=== PATIENT | female | born 1995 | race Caucasian/White ===

== ENCOUNTER 2016-10-29 17:36 | Observation (INO) | payer OTHER, SELFPAY ==
--- NOTE | 2016-10-29 18:15 | EDM.PDOC ---
ED [facility] Behavioral Health - General Chief Complaint: Behavioral/Psych Stated Complaint: THOUGHTS OF SUICIDE Time Seen by Provider: 10/29/16 17:45 Source of Information: Reports: Patient Exam Limitations: Reports: No limitations - History of Present Illness INITIAL COMMENTS - FREE TEXT/NARRATIVE: History of present illness: [21-year-old female comes in stating that she did the lai head and she feels like doing self-harm. Patient indicates she did attempt suicide approximately 2 or 3 years ago and failed and she beginning to feel the same way she did then and is very frightening to her and she seeking help at this time] Review of systems: As per history of present illness and below otherwise all systems reviewed and negative. Past medical history: As per history of present illness and as reviewed below otherwise noncontributory. Surgical history: As per history of present illness and as reviewed below otherwise noncontributory. Social history: No reported history of drug or alcohol abuse. Family history: As per history of present illness and as reviewed below otherwise noncontributory. Physical exam: HEENT: Atraumatic, normocephalic, pupils reactive, negative for conjunctival pallor or scleral icterus, mucous membranes moist, throat clear, neck supple, nontender, trachea midline. Lungs: Clear to auscultation, breath sounds equal bilaterally, chest nontender. Heart: S1S2, regular, negative for clicks, rubs, or JVD. Abdomen: Soft, nondistended, nontender. Negative for masses or hepatosplenomegaly. Negative for costovertebral tenderness. Pelvis: Stable nontender. Genitourinary: Deferred. Rectal: Deferred. Extremities: Atraumatic, negative for cords or calf pain. Neurovascular unremarkable. Neuro: Awake, alert, oriented. Cranial nerves II through XII unremarkable. Cerebellum unremarkable. Motor and sensory unremarkable throughout. Exam nonfocal. Global assessment is benign save as indicated in the history of present illness. Patient indicates she does have suicidal thoughts and knows that if she doesn't get help she will develop the plan. Use and states that she did attempt suicide once before and felt the same way to Diagnostics: [Psych workup] Therapeutics: [] Impression: [Suicidal thoughts] Plan: [We will follow patient here for observation pending transfer to psych facility tomorrow the ground transport is available] Definitive disposition and diagnosis as appropriate pending reevaluation and review of above. - Related Data Allergies Allergy/AdvReac Type Severity Reaction Status Date / Time No Known Allergies Allergy Verified 10/29/16 17:42 Home Medications: Home Meds ClonazePAM [KlonoPIN] 0.5 mg PO TID PRN 10/29/16 [History] Depression Medication 10/29/16 [History] buPROPion [Wellbutrin XL] 150 mg PO DAILY 10/29/16 [History] Past Medical History - Past Health History Medical/Surgical History: Denies Medical/Surgical History Respiratory History: Reports: Asthma Psychiatric History: Reports: Anxiety, Depression, Suicide attempt, Suicidal ideation - Infectious Disease History Infectious Disease History: Reports: Chicken pox Social & Family History - Family History Family Medical History: Noncontributory - Tobacco Use Smoking Status *Q: Never Smoker Second Hand Smoke Exposure: No - Recreational Drug Use Recreational Drug Use: No ED ROS GENERAL - Review of Systems Review Of Systems: See Below (See history of present illness) ED EXAM, BEHAVIORAL HEALTH - Physical Exam Exam: See Below (History of present illness) COURSE, BEHAVIORAL HEALTH COMP - Course Vital Signs: Last Vital Signs Temp 36.6 C 10/29/16 17:44 Pulse 98 10/29/16 17:44 Resp 18 10/29/16 17:44 BP 130/85 10/29/16 17:44 Pulse Ox 98 10/29/16 17:44 Departure - Departure Time of Disposition: 19:41 Disposition: Admitted As Inpatient 66 Condition: good Clinical Impression: Suicidal ideation Forms: ED Department Discharge
[2016-10-29 18:38] LABS: CHLORIDE,CL 108 mmol/L (98-110); SODIUM,NA 141 mmol/L (136-146)
[2016-10-29 19:10] LABS: ACETAMINOPHEN < 3.0 ug/mL
--- NOTE | 2016-10-29 20:52 | PCM.HP ---
H&P History of Present Illness - General Date of Service: 10/29/16 Admit Problem/Dx: Admission Diagnosis/Problem Admission Diagnosis/Problem Suicide attempt Source of Information: Patient History Limitations: Reports: No limitations - History of Present Illness Initial Comments - Free Text/Narative: 21 y o patient with history prior suicide attempt or gesture comes to ER saying she feels like she did then. No transport available to psych facility, admitted here for now Onset of Symptoms: Reports: gradual - Related Data Allergies/Adverse Reactions: Allergies Allergy/AdvReac Type Severity Reaction Status Date / Time No Known Allergies Allergy Verified 10/29/16 17:42 Home Medications: Home Meds ClonazePAM [KlonoPIN] 0.5 mg PO TID PRN 10/29/16 [History] Depression Medication 10/29/16 [History] buPROPion [Wellbutrin XL] 150 mg PO DAILY 10/29/16 [History] Past Medical History - Past Health History Medical/Surgical History: Denies Medical/Surgical History Respiratory History: Reports: Asthma Psychiatric History: Reports: Anxiety, Depression, Suicide attempt, Suicidal ideation - Infectious Disease History Infectious Disease History: Reports: Chicken pox Social & Family History - Family History Family Medical History: Noncontributory - Tobacco Use Smoking Status *Q: Never Smoker Second Hand Smoke Exposure: No - Recreational Drug Use Recreational Drug Use: No - Living Situation & Occupation Living situation: Reports: single (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) H&P Review of Systems - Review of Systems: Review Of Systems: See Below General: Reports: no symptoms HEENT: Reports: no symptoms Pulmonary: Reports: No Symptoms Cardiovascular: Reports: no symptoms Gastrointestinal: Reports: No symptoms Genitourinary: Reports: no symptoms Musculoskeletal: Reports: no symptoms Skin: Reports: no symptoms Psychiatric: Reports: anxiety, suicidal ideation Neurological: Reports: No Symptoms Hematologic/Lymphatic: Reports: no symptoms Immunologic: Reports: no symptoms Exam - Exam Exam: See Below - Vital Signs Vital Signs: Last Vital Signs Temp 37.1 C 10/29/16 19:56 Pulse 95 10/29/16 19:56 Resp 16 10/29/16 19:56 BP 124/66 10/29/16 19:56 Pulse Ox 99 10/29/16 19:56 Weight: 72.575 kg - Exam General: alert, cooperative Neck: supple Lungs: Clear to auscultation Cardiovascular: regular rate Abdomen: normal bowel sounds (Female) Exam: Deferred Rectal (Female) Exam: Deferred Back Exam: normal inspection Skin: other (multiple tatoos, several superficial laceration scars both wrists) - Patient Data Result Diagrams: 10/29/16 18:10 10/29/16 18:10 *Q Meaningful Use (ADM) - VTE *Q VTE Criteria *Q: - Stroke *Q Stroke Criteria *Q: - AMI *Q AMI Criteria *Q: Problem List Initiated/Reviewed/Updated: Yes Orders Last 24hrs: Active Orders 24 hr Category Date Time Status Admission Status [Patient Status] [ADT] Stat ADT 10/29/16 19:41 Active Assessment/Plan Comment:: anxiety depression with prior history of suicide attempt or at least gesture Plan admit here in monitored room until transport available to psych facility
[2016-10-29] MEDS ORDERED: Acetaminophen 325 MG Tab PO PRN (20:53)
[2016-10-29] MEDS ORDERED: Ondansetron 4 MG Tab.DIS PO PRN (20:53)
[2016-10-29] MEDS ORDERED: ClonazePAM 0.5 MG Tab PO PRN (20:55)
[2016-10-30 08:52] VITALS: BP 91/51
[2016-10-30] MEDS ORDERED: buPROPion 150 MG Tab.ER PO SCH (09:00)
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
--- NOTE | 2016-11-01 16:04 | PCM.DCSUM1 ---
Discharge Summary - Hospital Course Free Text/Narrative:: Admission diagnoses: #1. suicidal ideations #2. Anxiety #3. Depression #4. Marijuana use Discharge diagnoses: #1. Suicidal ideations, resolved #2. Anxiety #3. Depression #4. Marijuana use 21-year-old female that was admitted secondary to suicidal ideations. Patient presented to the emergency room feeling as though she could potentially harm herself. She was admitted to the ICU and had a one-on-one sitter during admission. Patient denied any suicidal/homicidal ideations after admission. CBC , CMP, urinalysis, ethanol levels and urine drug screen were all unremarkable. TSH was mildly low at 0.4 with T3 being within normal limits. Patient did visit with psychiatrist, Dr. Sebastian, via the computer. He spoke with me following his conversation with the patient and suggested that she is safe for discharge and that she needs to be set up with mental health provider here in [place], [place]. He did make some adjustments to her medications. At the time of discharge, the patient denied any suicidal/homicidal ideations and felt that she was safe to go home. - Discharge Data Discharge Date: 10/30/16 Discharge Disposition: Home, Self-Care 01 Condition: Fair - Discharge Diagnosis/Problem(s) (1) Suicidal ideation SNOMED Code(s): 2419447, [id number] ICD Code: R45.851 - SUICIDAL IDEATIONS Status: Acute - Patient Instructions Diet: Usual Diet as Tolerated, No Alcoholic Beverages Activity: As Tolerated Driving: May Drive Today Showering/Bathing: May Shower Notify Provider of: Fever, Increased Pain, Nausea and/or Vomiting - Discharge Plan Prescriptions/Med Rec: ClonazePAM [KlonoPIN] 0.5 mg PO BID #60 tablet Topiramate [Topamax] 25 mg PO BID #14 tab Topiramate [Topamax] 50 mg PO BID #60 tab Home Medications: Home Meds buPROPion [Wellbutrin XL] 150 mg PO DAILY 10/29/16 [History] Acyclovir [Zovirax] 800 mg PO BID 10/30/16 [History] ClonazePAM [KlonoPIN] 0.5 mg PO BID #60 tablet 10/30/16 [Rx] Topiramate [Topamax] 25 mg PO BID #14 tab 10/30/16 [Rx] Topiramate [Topamax] 50 mg PO BID #60 tab 10/30/16 [Rx] Patient Handouts: Suicidal Feelings: How to Help Yourself Forms: ED Department Discharge Referrals: Sintia Escobedo NP [Nurse Practitioner] - 12/07/16 10:00 am (Will call if an appointment opens up sooner. ) Lala Boyce NP [Ordering Only Provider] - PCP,None [Primary Care Provider] - - Discharge Summary/Plan Comment DC Time >30 min.: No Discharge Summary/Plan Comment: Admission diagnoses: #1. suicidal ideations #2. Anxiety #3. Depression #4. Marijuana use Discharge diagnoses: #1. Suicidal ideations, resolved #2. Anxiety #3. Depression #4. Marijuana use 21-year-old female that was admitted secondary to suicidal ideations. Patient presented to the emergency room feeling as though she could potentially harm herself. She was admitted to the ICU and had a one-on-one sitter during admission. Patient denied any suicidal/homicidal ideations after admission. CBC , CMP, urinalysis, ethanol levels and urine drug screen were all unremarkable. TSH was mildly low at 0.4 with T3 being within normal limits. Patient did visit with psychiatrist, Dr. Sebastian, via the computer. He spoke with me following his conversation with the patient and suggested that she is safe for discharge and that she needs to be set up with mental health provider here in [place], [place]. He did make some adjustments to her medications. At the time of discharge, the patient denied any suicidal/homicidal ideations and felt that she was safe to go home. Discharge plan: #1. Patient has an appointment set with Tracy Escobedo, nurse practitioner in mental health on December 07, 2016. #2. Patient encouraged to follow up with her primary care provider, Lala Boyce as soon as possible following discharge. #3. Patient prescribed Topamax 25 mg twice a day for one week with the dose being increased to 50 mg twice a day thereafter. This was recommended by Dr. Sebastian. #4. Patient prescribed Klonopin 0.5 mg twice a day scheduled with an additional 0.5 mg being taken daily if needed. This was recommended by Dr. Sebastian. #5. Patient will continue with Wellbutrin 150 mg daily. #6. Encouraged the patient to stop using marijuana. Patient voiced understanding. - Patient Data Vitals - Most Recent: Last Vital Signs Temp 98.5 F 10/30/16 08:30 Pulse 77 10/30/16 08:30 Resp 14 10/30/16 08:30 BP 91/51 L 10/30/16 08:30 Pulse Ox 99 10/30/16 08:30 Weight - Most Recent: 160 lb Med Orders - Current: Current Medications Discontinued Medications Acetaminophen (Tylenol) 650 mg PO Q4H PRN PRN Reason: Pain (Mild 1-3)/fever Bupropion HCl (Wellbutrin Xl) 150 mg PO DAILY KELSI Last Admin: 10/30/16 08:59 Dose: 150 mg Clonazepam (Klonopin) 0.5 mg PO TID PRN PRN Reason: Anxiety Ondansetron HCl (Zofran Odt) 4 mg PO Q4H PRN PRN Reason: nausea, able to take PO *Q Meaningful Use (DIS) - VTE *Q VTE Criteria *Q: - Stroke *Q Stroke Criteria *Q: - AMI *Q AMI Criteria *Q:
== END 2016-10-30 12:39 | disposition home or self-care (01) ==
LOC: MW.ED 17:36 → MW.ICU 19:41
PROVIDERS: ADMIT Internal Medicine; ATTEND Internal Medicine
DX: R45.851 Suicidal ideations (principal); Z79.899 Other long term (current) drug therapy; F41.9 Anxiety disorder, unspecified; F32.9 Major depressive disorder, single episode, unspecified; F12.90 Cannabis use, unspecified, uncomplicated
CPT/HCPCS: 36415; 80053; 80305; 81001; 81025; 83735; 84443; 84481; 85025; 93005; 99285; A9270; G0378; G0480

== ENCOUNTER 2017-04-22 11:04 | Emergency (ER) | payer OTHER, SELFPAY ==
[2017-04-22] MEDS ORDERED: Sodium Chloride 0.9% 1,000 ML IV ONE (11:23)
[2017-04-22] MEDS ORDERED: Ondansetron 4 MG/2 ML SDV IVPUSH ONE (11:23)
[2017-04-22] MEDS ORDERED: Ketorolac 30 MG/ML SDV IVPUSH ONE (11:23)
--- NOTE | 2017-04-22 11:29 | EDM.PDOC ---
ED HPI GENERAL MEDICAL PROBLEM - General Chief Complaint: Headache Stated Complaint: MIGRAINE Time Seen by Provider: 04/22/17 11:08 Source of Information: Reports: Patient History Limitations: Reports: No Limitations - History of Present Illness INITIAL COMMENTS - FREE TEXT/NARRATIVE: HISTORY AND PHYSICAL: History of present illness: is a 22-year-old female who presents to the emergency room today with complaints of "migraine headache". States she has a long-standing history of headaches which she normally treats with rest in a dark room. Last headache was approximately 3 weeks ago. Today she states this headache started Saturday evening and is ongoing. She has not tried any [id number] products. Saturday night patient reports that she felt "out of it". Reports that her boyfriend had to drive her home which seem to be alleviated by sleeping and improved Saturday but still had her migraine headache. Does have some light and noise sensitivity. Has been seeing her primary caregiver Anamaria Saenz for her headaches. Currently takes Topamax and Klonopin which is prescribed by Marissa Escobedo psychiatrist. Denies any recent head injury or trauma. Denies syncope. Denies any blurred vision, nausea, vomiting. Review of systems: As per history of present illness and below otherwise all systems reviewed and negative. Past medical history: As per history of present illness and as reviewed below otherwise noncontributory. Surgical history: As per history of present illness and as reviewed below otherwise noncontributory. Social history: No reported history of drug or alcohol abuse. Family history: As per history of present illness and as reviewed below otherwise noncontributory. Physical exam: Gen.: Nontoxic appearing 22-year-old female. Able to speak in full sentences without shortness of breath. Alert and oriented. HEENT: Atraumatic, normocephalic, pupils reactive, negative for conjunctival pallor or scleral icterus, mucous membranes moist, throat clear, neck supple, nontender, trachea midline. Tympanic membrane normal bilaterally. Lungs: Clear to auscultation, breath sounds equal bilaterally, chest nontender. Heart: S1S2, regular, negative for clicks, rubs, or JVD. Abdomen: Soft, nondistended, nontender. Negative for masses or hepatosplenomegaly. Negative for costovertebral tenderness. Pelvis: Stable nontender. Genitourinary: Deferred. Rectal: Deferred. Extremities: Atraumatic, moves all extremities per self, negative for cords or calf pain. Neurovascular unremarkable. Neuro: Awake, alert, oriented. Cranial nerves II through XII unremarkable. Cerebellum unremarkable. Motor and sensory unremarkable throughout. Exam nonfocal. Neurological assessment is within normal limits. Patient states she has not had any recent head injury or trauma and declines a head CT at this time. Patient states that she did not get any relief with the IV fluids, Toradol and Zofran. Patient reports she does have a ride therefore I will give some Ativan and Benadryl with a second liter of fluids. After receiving her second bag of fluids and medications she does rate her pain at a 3 out of 10, which she is satisfied with. We did discuss further follow-up with her primary caregiver as she may need a migraine medication if these continue to be monthly. Patient is agreeable to plan of care and denies any further questions at this time. Will follow up with her primary care provider over the next 1-2 days. Diagnostics: None Therapeutics: Initial: IV fluid, Toradol, Zofran Additional Therapy: Ativan, Benadryl, IV fluids Impression: Migraine Headache Plan: 1. Please take the rest of the day to rest in a dark room, no driving after the medications you received. Encourage oral fluids and good nutrition. 2. Follow-up with your primary care provider in the next 1-2 days. Return to the ED as needed and as discussed Definitive disposition and diagnosis as appropriate pending reevaluation and review of above. Onset Date: 04/19/17 Duration: Day(s): Location: Reports: Head Temporal Headache Pain Score (Numeric/FACES): 5 - Related Data Allergies Allergy/AdvReac Type Severity Reaction Status Date / Time No Known Allergies Allergy Verified 04/22/17 11:19 Home Meds: Home Meds buPROPion [Wellbutrin XL] 150 mg PO DAILY 10/29/16 [History] ClonazePAM [KlonoPIN] 0.5 mg PO BID #60 tablet 10/30/16 [Rx] Topiramate [Topamax] 50 mg PO BID #60 tab 10/30/16 [Rx] Albuterol Sulfate [Ventolin Hfa] 8 gm IH ASDIRECTED PRN 04/22/17 [History] Montelukast Sodium [Singulair] 10 mg PO DAILY 04/22/17 [History] valACYclovir HCl [valACYclovir] 1,000 mg PO DAILY 04/22/17 [History] Past Medical History - Past Health History Medical/Surgical History: Denies Medical/Surgical History Respiratory History: Reports: Asthma Neurological History: Reports: Migraines Psychiatric History: Reports: Anxiety, Depression, Suicide Attempt, Suicidal Ideation - Infectious Disease History Infectious Disease History: Reports: Chicken Pox Social & Family History - Family History Family Medical History: Noncontributory - Tobacco Use Smoking Status *Q: Never Smoker Second Hand Smoke Exposure: No - Caffeine Use Caffeine Use: Reports: Coffee, Energy Drinks, Soda, Tea - Recreational Drug Use Recreational Drug Use: Yes Drug Use in Last 12 Months: Yes Recreational Drug Type: Reports: Marijuana/Hashish Recreational Drug Use Frequency: Rarely - Living Situation & Occupation Living situation: Reports: Single ED ROS GENERAL - Review of Systems Review Of Systems: ROS reveals no pertinent complaints other than HPI. Constitutional: Denies: Fever, Chills Respiratory: Denies: Shortness of Breath Cardiovascular: Denies: Chest Pain GI/Abdominal: Denies: Abdominal Pain, Diarrhea, Vomiting : Denies: Dysuria Skin: Denies: Jaundice Neurological: Reports: Headache. Denies: Confusion, Dizziness, Numbness, Paresthesia, Syncope, Tingling, Trouble Speaking, Difficulty Walking, Change in Speech, Gait Disturbance Psychiatric: Denies: Agitation, Confusion - Physical Exam Exam: See Below (See dictation) Course - Vital Signs Last Recorded V/S: Last Vital Signs Temp 36.6 C 04/22/17 11:17 Pulse 83 04/22/17 13:02 Resp 16 04/22/17 13:02 BP 105/59 L 04/22/17 13:02 Pulse Ox 100 04/22/17 13:02 - Orders/Labs/Meds Orders: Active Orders 24 hr Category Date Time Status Sodium Chloride 0.9% [Normal Saline] 1,000 ml Med 04/22/17 12:30 Active IV ASDIRECTED Medication Orders Sodium Chloride (Normal Saline) 1,000 mls @ 999 mls/hr IV ASDIRECTED KELSI Last Admin: 04/22/17 13:02 Dose: 999 mls/hr Meds: Medications Generic Name Dose Route Start Last Admin Trade Name Freq PRN Reason Stop Dose Admin Sodium Chloride 1,000 mls @ 999 mls/hr 04/22/17 12:30 04/22/17 13:02 Normal Saline IV 999 mls/hr ASDIRECTED KELSI Administration Discontinued Medications Generic Name Dose Route Start Last Admin Trade Name Maria Esther PRN Reason Stop Dose Admin Diphenhydramine HCl 25 mg 04/22/17 12:21 04/22/17 12:45 Benadryl IVPUSH 04/22/17 12:22 25 mg ONETIME ONE Administration Sodium Chloride 1,000 mls @ 999 mls/hr 04/22/17 11:23 04/22/17 11:37 Normal Saline IV 04/22/17 12:23 999 mls/hr STAT ONE Administration Ketorolac Tromethamine 30 mg 04/22/17 11:23 04/22/17 11:40 Toradol IVPUSH 04/22/17 11:24 30 mg ONETIME ONE Administration Lorazepam 1 mg 04/22/17 12:21 04/22/17 12:43 Ativan IVPUSH 04/22/17 12:22 1 mg ONETIME ONE Administration Ondansetron HCl 4 mg 04/22/17 11:23 04/22/17 11:41 Zofran IVPUSH 04/22/17 11:24 4 mg ONETIME ONE Administration Departure - Departure Time of Disposition: 13:14 Disposition: Home, Self-Care 01 Clinical Impression: Migraine - Discharge Information Referrals: PCP,None [Primary Care Provider] - Forms: ED Department Discharge Additional Instructions: My general discharge The following information is given to patients seen in the emergency department who are being discharged to home. This information is to outline your options for follow-up care. We provide all patients seen in our emergency department with a follow-up referral. The need for follow-up, as well as the timing and circumstances, are variable depending upon the specifics of your emergency department visit. If you don't have a primary care physician on staff, we will provide you with a referral. We always advise you to contact your personal physician following an emergency department visit to inform them of the circumstance of the visit and for follow-up with them and/or the need for any referrals to a consulting specialist. The emergency department will also refer you to a specialist when appropriate. This referral assures that you have the opportunity for follow-up care with a specialist. All of these measure are taken in an effort to provide you with optimal care, which includes your follow-up. Under all circumstances we always encourage you to contact your private physician who remains a resource for coordinating your care. When calling for follow-up care, please make the office aware that this follow-up is from your recent emergency room visit. If for any reason you are refused follow-up, please contact the [facility] Emergency Department at and asked to speak to the emergency department charge nurse. [facility] Primary Care - Women's Health [address] [place] [id number] 1. Please take the rest of the day to rest in a dark room, no driving after the medications you received. Encourage oral fluids and good nutrition. 2. Follow-up with your primary care provider in the next 1-2 days. Return to the ED as needed and as discussed - My Orders Last 24 Hours: My Active Orders 04/22/17 12:30 Sodium Chloride 0.9% [Normal Saline] 1,000 ml IV ASDIRECTED - Assessment/Plan Last 24 Hours: My Active Orders 04/22/17 12:30 Sodium Chloride 0.9% [Normal Saline] 1,000 ml IV ASDIRECTED
[2017-04-22] MEDS ORDERED: LORazepam 2 MG/ML MDV IVPUSH ONE (12:21)
[2017-04-22] MEDS ORDERED: diphenhydrAMINE 50 MG/ML SDV IVPUSH ONE (12:21)
[2017-04-22] MEDS ORDERED: Sodium Chloride 0.9% 1,000 ML IV SCH (12:30)
[2017-04-22 13:03] VITALS: BP 105/59
== END 2017-04-22 14:01 | disposition home or self-care (01) ==
LOC: MW.ED 11:04
DX: G43.909 Migraine, unspecified, not intractable, without status migrainosus (principal); Z79.899 Other long term (current) drug therapy
CPT/HCPCS: 96361; 96374; 96375; 99283; J1200; J1885; J2060; J2405; J7040

== ENCOUNTER 2017-05-01 14:34 | Emergency (ER) | payer OTHER, SELFPAY ==
--- NOTE | 2017-05-01 14:47 | EDM.PDOC ---
ED HPI GENERAL MEDICAL PROBLEM - General Stated Complaint: MIGRAINE Time Seen by Provider: 05/01/17 14:44 - History of Present Illness INITIAL COMMENTS - FREE TEXT/NARRATIVE: HISTORY AND PHYSICAL: History of present illness: Patient is 22-year-old female with history migraine headaches was seen 1 week prior with migraine he returns now for reevaluation and referral she is on multiple medications please see nursing notes for complete record she denies nausea vomiting fever chills neck pain or stiffness or other complaints she denies trauma Review of systems: As per history of present illness and below otherwise all systems reviewed and negative. Past medical history: As per history of present illness and as reviewed below otherwise noncontributory. Surgical history: As per history of present illness and as reviewed below otherwise noncontributory. Social history: No reported history of drug or alcohol abuse. Family history: As per history of present illness and as reviewed below otherwise noncontributory. Physical exam: HEENT: Atraumatic, normocephalic, pupils reactive, negative for conjunctival pallor or scleral icterus, mucous membranes moist, throat clear, neck supple, nontender, trachea midline. Lungs: Clear to auscultation, breath sounds equal bilaterally, chest nontender. Heart: S1S2, regular, negative for clicks, rubs, or JVD. Abdomen: Soft, nondistended, nontender. Negative for masses or hepatosplenomegaly. Negative for costovertebral tenderness. Pelvis: Stable nontender. Genitourinary: Deferred. Rectal: Deferred. Extremities: Atraumatic, negative for cords or calf pain. Neurovascular unremarkable. Neuro: Awake, alert, oriented. Cranial nerves II through XII unremarkable. Cerebellum unremarkable. Motor and sensory unremarkable throughout. Exam nonfocal. Diagnostics: Deferred Therapeutics: Deferred Impression: #1 migraine headache Definitive disposition and diagnosis as appropriate pending reevaluation and review of above. - Related Data Allergies Allergy/AdvReac Type Severity Reaction Status Date / Time No Known Allergies Allergy Verified 04/22/17 11:19 Home Meds: Home Meds buPROPion [Wellbutrin XL] 150 mg PO DAILY 10/29/16 [History] ClonazePAM [KlonoPIN] 0.5 mg PO BID #60 tablet 10/30/16 [Rx] Topiramate [Topamax] 50 mg PO BID #60 tab 10/30/16 [Rx] Albuterol Sulfate [Ventolin Hfa] 8 gm IH ASDIRECTED PRN 04/22/17 [History] Montelukast Sodium [Singulair] 10 mg PO DAILY 04/22/17 [History] valACYclovir HCl [valACYclovir] 1,000 mg PO DAILY 04/22/17 [History] Past Medical History - Past Health History Medical/Surgical History: Denies Medical/Surgical History Respiratory History: Reports: Asthma Neurological History: Reports: Migraines Psychiatric History: Reports: Anxiety, Depression, Suicide Attempt, Suicidal Ideation - Infectious Disease History Infectious Disease History: Reports: Chicken Pox Social & Family History - Family History Family Medical History: Noncontributory - Tobacco Use Smoking Status *Q: Never Smoker Second Hand Smoke Exposure: No - Caffeine Use Caffeine Use: Reports: Coffee, Energy Drinks, Soda, Tea - Recreational Drug Use Recreational Drug Use: Yes Drug Use in Last 12 Months: Yes Recreational Drug Type: Reports: Marijuana/Hashish Recreational Drug Use Frequency: Rarely - Living Situation & Occupation Living situation: Reports: Single ED ROS GENERAL - Review of Systems Review Of Systems: ROS reveals no pertinent complaints other than HPI. ED EXAM, GENERAL - Physical Exam Exam: See Below (The dictation) Departure - Departure Time of Disposition: 14:47 Disposition: Home, Self-Care 01 Condition: Good Clinical Impression: Migraine - Discharge Information Referrals: PCP,None [Primary Care Provider] - Additional Instructions: The following information is given to patients seen in the emergency department who are being discharged to home. This information is to outline your options for follow-up care. We provide all patients seen in our emergency department with a follow-up referral. The need for follow-up, as well as the timing and circumstances, are variable depending upon the specifics of your emergency department visit. If you don't have a primary care physician on staff, we will provide you with a referral. We always advise you to contact your personal physician following an emergency department visit to inform them of the circumstance of the visit and for follow-up with them and/or the need for any referrals to a consulting specialist. The emergency department will also refer you to a specialist when appropriate. This referral assures that you have the opportunity for followup care with a specialist. All of these measure are taken in an effort to provide you with optimal care, which includes your followup. Under all circumstances we always encourage you to contact your private physician who remains a resource for coordinating your care. When calling for followup care, please make the office aware that this follow-up is from your recent emergency room visit. If for any reason you are refused follow-up, please contact the [facility] emergency department at and asked to speak to the emergency department charge nurse. [facility] Specialty Care - Neurology Professional [address], [address] [place] [address] Continue current medications as prescribed follow-up neurology call to schedule appointment return as needed as discussed
[2017-05-01 15:49] VITALS: BP 132/70
== END 2017-05-01 14:53 | disposition home or self-care (01) ==
LOC: MW.ED 14:34
DX: G43.909 Migraine, unspecified, not intractable, without status migrainosus (principal); F32.9 Major depressive disorder, single episode, unspecified; Z79.899 Other long term (current) drug therapy
CPT/HCPCS: 99282

== ENCOUNTER 2017-05-06 17:49 | Emergency (ER) | payer OTHER, SELFPAY ==
--- NOTE | 2017-05-06 19:00 | EDM.PDOC ---
ED HPI GENERAL MEDICAL PROBLEM - General Chief Complaint: Headache Stated Complaint: MIGRAINE Time Seen by Provider: 05/06/17 18:54 Source of Information: Reports: Patient History Limitations: Reports: No Limitations - History of Present Illness INITIAL COMMENTS - FREE TEXT/NARRATIVE: HISTORY AND PHYSICAL: History of present illness: Patient is a 22-year-old female who presents to the emergency room today with complaints of a migraine headache which she has had for approximately 5 days. She states this is accompanied by nausea, vomiting, light and noise sensitivity. She was diagnosed with migraines at the age of 15 and states she does take a daily maintenance medication, but is unsure of the name or dose of what she takes. Had a head CT by her primary care provider last week , she has not received those results. This was ordered due to her frequency of migraines. Was seen in the emergency room on 05/01/17 for this headache and states she did not receive any medications and her headache has not improved. Denies any recent head injury or trauma to the scalp. Denies any blurred vision. Currently on menses. Denies any chance of . Review of systems: As per history of present illness and below otherwise all systems reviewed and negative. Past medical history: As per history of present illness and as reviewed below otherwise noncontributory. Surgical history: As per history of present illness and as reviewed below otherwise noncontributory. Social history: No reported history of drug or alcohol abuse. Family history: As per history of present illness and as reviewed below otherwise noncontributory. Physical exam: Gen.: Nontoxic appearing 22-year-old female. Well-developed and well-nourished. Alert and oriented. HEENT: Atraumatic, normocephalic, pupils reactive, negative for conjunctival pallor or scleral icterus, mucous membranes moist, throat clear, neck supple, nontender, trachea midline. Lungs: Clear to auscultation, breath sounds equal bilaterally, chest nontender. Heart: S1S2, regular, negative for clicks, rubs, or JVD. Abdomen: Soft, nondistended, nontender. Negative for masses or hepatosplenomegaly. Negative for costovertebral tenderness. Pelvis: Stable nontender. Genitourinary: Deferred. Rectal: Deferred. Extremities: Atraumatic, negative for cords or calf pain. Neurovascular unremarkable. Neuro: Awake, alert, oriented. Cranial nerves II through XII unremarkable. Cerebellum unremarkable. Motor and sensory unremarkable throughout. Exam nonfocal. Patient had a MRI brain 05/02/17. A mild sinusitis. I did share this with patient. She states that she still has migraine headache pain even after receiving the IV medications. I did suggest that she go home and rest rest the evening. Will treat the sinusitis with Augmentin encouraged her to follow-up with her primary care provider. Patient denies any further questions, is agreeable to plan of care and denies any further questions. Diagnostics: [] Therapeutics: IV fluid, Toradol, Zofran, Benadryl Impression: Migraines Sinusitis Plan: 1. Rest the remainder of the evening in a quiet dark room. He may use over-the- counter Excedrin Migraine or ibuprofen as needed. 2. Will treat the sinusitis with an antibiotic. Please take as directed. 3. Follow-up with your primary care provider in the next 1-2 days. Return to the ED as needed as discussed. Definitive disposition and diagnosis as appropriate pending reevaluation and review of above. Duration: Day(s): Location: Reports: Head Headache Pain Score (Numeric/FACES): 9 - Related Data Allergies Allergy/AdvReac Type Severity Reaction Status Date / Time No Known Allergies Allergy Verified 05/06/17 18:11 Home Meds: Home Meds buPROPion [Wellbutrin XL] 150 mg PO DAILY 10/29/16 [History] ClonazePAM [KlonoPIN] 0.5 mg PO BID #60 tablet 10/30/16 [Rx] Montelukast Sodium [Singulair] 10 mg PO DAILY 04/22/17 [History] valACYclovir HCl [valACYclovir] 1,000 mg PO DAILY 04/22/17 [History] Citalopram [Celexa] 40 mg PO DAILY 05/01/17 [History] Omalizumab [Xolair] 05/01/17 [History] Zolpidem [Ambien] 10 mg PO DAILY 05/01/17 [History] Past Medical History - Past Health History Medical/Surgical History: Denies Medical/Surgical History Respiratory History: Reports: Asthma Neurological History: Reports: Migraines Psychiatric History: Reports: Anxiety, Depression, Suicide Attempt, Suicidal Ideation - Infectious Disease History Infectious Disease History: Reports: Chicken Pox Social & Family History - Family History Family Medical History: Noncontributory - Tobacco Use Smoking Status *Q: Never Smoker Second Hand Smoke Exposure: No - Caffeine Use Caffeine Use: Reports: Tea - Recreational Drug Use Recreational Drug Use: No Drug Use in Last 12 Months: Yes Recreational Drug Type: Reports: Marijuana/Hashish Recreational Drug Use Frequency: Rarely - Living Situation & Occupation Living situation: Reports: Single ED ROS GENERAL - Review of Systems Review Of Systems: ROS reveals no pertinent complaints other than HPI. - Physical Exam Exam: See Below (See dictation) Course - Vital Signs Last Recorded V/S: Last Vital Signs Temp 36.7 C 05/06/17 18:21 Pulse 79 05/06/17 18:21 Resp 18 05/06/17 18:21 BP 121/71 05/06/17 18:21 Pulse Ox 97 05/06/17 18:21 - Orders/Labs/Meds Meds: Medications Discontinued Medications Generic Name Dose Route Start Last Admin Trade Name Maria Esther PRN Reason Stop Dose Admin Diphenhydramine HCl 50 mg 05/06/17 19:01 05/06/17 19:15 Benadryl IVPUSH 05/06/17 19:02 50 mg ONETIME ONE Administration Sodium Chloride 1,000 mls @ 999 mls/hr 05/06/17 19:01 05/06/17 19:13 Normal Saline IV 05/06/17 20:01 999 mls/hr STAT ONE Administration Ketorolac Tromethamine 30 mg 05/06/17 19:01 05/06/17 19:15 Toradol IVPUSH 05/06/17 19:02 30 mg ONETIME ONE Administration Lorazepam 1 mg 05/06/17 20:03 05/06/17 20:22 Ativan IVPUSH 05/06/17 20:04 1 mg ONETIME ONE Administration Ondansetron HCl 4 mg 05/06/17 19:01 05/06/17 19:15 Zofran IVPUSH 05/06/17 19:02 4 mg ONETIME ONE Administration Departure - Departure Time of Disposition: 20:58 Disposition: Home, Self-Care 01 Clinical Impression: Migraine Qualifiers: Migraine type: unspecified Status migrainosus presence: without status migrainosus Intractability: not intractable Qualified Code(s): G43.909 - Migraine, unspecified, not intractable, without status migrainosus Sinusitis Qualifiers: Sinusitis location: sphenoidal Chronicity: subacute Qualified Code(s): J01.30 - Acute sphenoidal sinusitis, unspecified - Discharge Information Referrals: PCP,None [Primary Care Provider] - Forms: ED Department Discharge Additional Instructions: My general discharge The following information is given to patients seen in the emergency department who are being discharged to home. This information is to outline your options for follow-up care. We provide all patients seen in our emergency department with a follow-up referral. The need for follow-up, as well as the timing and circumstances, are variable depending upon the specifics of your emergency department visit. If you don't have a primary care physician on staff, we will provide you with a referral. We always advise you to contact your personal physician following an emergency department visit to inform them of the circumstance of the visit and for follow-up with them and/or the need for any referrals to a consulting specialist. The emergency department will also refer you to a specialist when appropriate. This referral assures that you have the opportunity for follow-up care with a specialist. All of these measure are taken in an effort to provide you with optimal care, which includes your follow-up. Under all circumstances we always encourage you to contact your private physician who remains a resource for coordinating your care. When calling for follow-up care, please make the office aware that this follow-up is from your recent emergency room visit. If for any reason you are refused follow-up, please contact the [facility] Emergency Department at and asked to speak to the emergency department charge nurse. [facility] Primary [facility] [address] [place] [id number] 1. Rest the remainder of the evening in a quiet dark room. You may use over-the- counter Excedrin Migraine or ibuprofen as needed. 2. Will treat the sinusitis with an antibiotic. Please take as directed. 3. Follow-up with your primary care provider in the next 1-2 days. Return to the ED as needed as discussed.
[2017-05-06] MEDS ORDERED: Ketorolac 30 MG/ML SDV IVPUSH ONE (19:01)
[2017-05-06] MEDS ORDERED: Ondansetron 4 MG/2 ML SDV IVPUSH ONE (19:01)
[2017-05-06] MEDS ORDERED: diphenhydrAMINE 50 MG/ML SDV IVPUSH ONE (19:01)
[2017-05-06] MEDS ORDERED: Sodium Chloride 0.9% 1,000 ML IV ONE (19:01)
[2017-05-06] MEDS ORDERED: LORazepam 2 MG/ML SDV IVPUSH ONE (20:03)
[2017-05-07 01:00] VITALS: BP 112/65
== END 2017-05-06 21:19 | disposition home or self-care (01) ==
LOC: MW.ED 17:49
DX: G43.909 Migraine, unspecified, not intractable, without status migrainosus (principal); J01.30 Acute sphenoidal sinusitis, unspecified
CPT/HCPCS: 96361; 96374; 96375; 99283; J1200; J1885; J2060; J2405; J7040

== ENCOUNTER 2017-05-08 14:23 | Emergency (ER) | payer OTHER, SELFPAY ==
--- NOTE | 2017-05-08 15:03 | EDM.PDOC ---
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 Last menstrual period was April 16, 2017 and believed she was currently on her period today. She went to the bathroom and noticed some tissue as she wiped with toilet paper. She brought the toilet paper with the believed tissue to the emergency room for viewing. She denies any abdominal pain, cramping, nausea, vomiting or diarrhea. Patient is tearful while sitting on the cot, although has no current complaints. She states that she is "just sad if I did miscarry ". She has had no recent sexual activity. Review of systems: As per history of present illness and below otherwise all systems reviewed and negative. Past medical history: As per history of present illness and as reviewed below otherwise noncontributory. Surgical history: As per history of present illness and as reviewed below otherwise noncontributory. Social history: No reported history of drug or alcohol abuse. Family history: As per history of present illness and as reviewed below otherwise noncontributory. Physical exam: HEENT: Atraumatic, normocephalic, pupils reactive, negative for conjunctival pallor or scleral icterus, mucous membranes moist, throat clear, neck supple, nontender, trachea midline. Lungs: Clear to auscultation, breath sounds equal bilaterally, chest nontender. Heart: S1S2, regular, negative for clicks, rubs, or JVD. Abdomen: Soft, nondistended, nontender. Negative for masses or hepatosplenomegaly. Negative for costovertebral tenderness. Pelvis: Stable nontender. Genitourinary: Deferred. Rectal: Deferred. Extremities: Atraumatic, negative for cords or calf pain. Neurovascular unremarkable. Neuro: Awake, alert, oriented. Cranial nerves II through XII unremarkable. Cerebellum unremarkable. Motor and sensory unremarkable throughout. Exam nonfocal. Diagnostics: CBC, UA, serum hCG Therapeutics: [] Impression: Vaginal bleeding Plan: 1. Please follow-up with your FINANCIAL REPORTING ACCOUNTANT for routine well woman exam. He may take Tylenol and/or ibuprofen as needed for pain management. 2. Return to the ED as needed and as discussed. Definitive disposition and diagnosis as appropriate pending reevaluation and review of above. Onset: Today Duration: Hour(s): - Related Data Allergies Allergy/AdvReac Type Severity Reaction Status Date / Time No Known Allergies Allergy Verified 05/08/17 14:32 Home Meds: Home Meds buPROPion [Wellbutrin XL] 150 mg PO DAILY 10/29/16 [History] ClonazePAM [KlonoPIN] 0.5 mg PO BID #60 tablet 10/30/16 [Rx] Montelukast Sodium [Singulair] 10 mg PO DAILY 04/22/17 [History] valACYclovir HCl [valACYclovir] 1,000 mg PO DAILY 04/22/17 [History] Citalopram [Celexa] 40 mg PO DAILY 05/01/17 [History] Omalizumab [Xolair] 05/01/17 [History] Zolpidem [Ambien] 10 mg PO DAILY 05/01/17 [History] Past Medical History - Past Health History Medical/Surgical History: Denies Medical/Surgical History Respiratory History: Reports: Asthma Neurological History: Reports: Migraines Psychiatric History: Reports: Anxiety, Depression, Suicide Attempt, Suicidal Ideation - Infectious Disease History Infectious Disease History: Reports: Chicken Pox Social & Family History - Family History Family Medical History: Noncontributory - Tobacco Use Smoking Status *Q: Never Smoker Second Hand Smoke Exposure: No - Caffeine Use Caffeine Use: Reports: Tea - Recreational Drug Use Recreational Drug Use: No Drug Use in Last 12 Months: Yes Recreational Drug Type: Reports: Marijuana/Hashish Recreational Drug Use Frequency: Rarely - Living Situation & Occupation Living situation: Reports: Single ED ROS GENERAL - Review of Systems Review Of Systems: ROS reveals no pertinent complaints other than HPI. Constitutional: Denies: Fever, Chills, Weakness, Fatigue Respiratory: Denies: Shortness of Breath Cardiovascular: Denies: Chest Pain Endocrine: Denies: Fatigue GI/Abdominal: Denies: Abdominal Pain, Constipation, Diarrhea, Nausea, Vomiting : Reports: Other (Vaginal bleeding which was thought to be menses). Denies: Discharge, Dysuria, Frequency, Hematuria Musculoskeletal: Denies: Muscle Pain Skin: Denies: Rash Neurological: Reports: Headache (Chronic migraines -currently headache free). Denies: Dizziness ED EXAM, GI/ABD - Physical Exam Exam: See Below (See dictation) Course - Vital Signs Last Recorded V/S: Last Vital Signs Temp 36.3 C 05/08/17 14:23 Pulse 86 05/08/17 14:23 Resp 18 05/08/17 14:23 BP 161/98 H 05/08/17 14:23 Pulse Ox 100 05/08/17 14:23 - Orders/Labs/Meds Labs: Laboratory Tests 05/08/17 05/08/17 05/08/17 Range/Units 15:00 15:00 15:40 WBC 8.56 (4.0-11.0) K/uL RBC 4.16 L (4.30-5.90) M/uL Hgb 13.7 (12.0-16.0) g/dL Hct 40.6 (36.0-46.0) % MCV 97.6 (80.0-98.0) fL MCH 32.9 H (27.0-32.0) pg MCHC 33.7 (31.0-37.0) g/dL RDW Std Deviation 43.5 (28.0-62.0) fl RDW Coeff of Josh 12 (11.0-15.0) % Plt Count 329 (150-400) K/uL MPV 9.30 (7.40-12.00) fL Neut % (Auto) 70.5 (48.0-80.0) % Lymph % (Auto) 23.4 (16.0-40.0) % [place] % (Auto) 5.4 (0.0-15.0) % Eos % (Auto) 0.6 (0.0-7.0) % Baso % (Auto) 0.1 (0.0-1.5) % Neut # (Auto) 6.0 H (1.4-5.7) K/uL Lymph # (Auto) 2.0 (0.6-2.4) K/uL [place] # (Auto) 0.5 (0.0-0.8) K/uL Eos # (Auto) 0.1 (0.0-0.7) K/uL Baso # (Auto) 0.0 (0.0-0.1) K/uL Nucleated RBC % 0.0 /100WBC Nucleated RBCs # 0 K/uL HCG, Qual NEGATIVE (NEG) Urine Color YELLOW Urine Appearance CLEAR Urine pH 7.5 (5.0-8.0) Ur Specific [place] <= 1.005 (1.001-1.035) Urine Protein NEGATIVE (NEGATIVE) mg/dL Urine Glucose (UA) NEGATIVE (NEGATIVE) mg/dL Urine Ketones NEGATIVE (NEGATIVE) mg/dL Urine Occult Blood LARGE H (NEGATIVE) Urine Nitrite NEGATIVE (NEGATIVE) Urine Bilirubin NEGATIVE (NEGATIVE) Urine Urobilinogen 0.2 (<2.0) EU/dL Ur Leukocyte Esterase NEGATIVE (NEGATIVE) Urine RBC 1-2 (0-2/HPF) Urine WBC 0-1 (0-5/HPF) Ur Epithelial Cells OCCASIONAL (NONE-FEW) Urine Bacteria RARE (NEGATIVE) Meds: Medications Discontinued Medications Generic Name Dose Route Start Last Admin Trade Name Freq PRN Reason Stop Dose Admin Ondansetron HCl 4 mg 05/08/17 15:46 05/08/17 16:16 Zofran Odt PO 05/08/17 15:47 Not Given ONETIME ONE Departure - Departure Time of Disposition: 16:29 Disposition: Home, Self-Care 01 Clinical Impression: Vaginal bleeding - Discharge Information Forms: ED Department Discharge Additional Instructions: My general discharge The following information is given to patients seen in the emergency department who are being discharged to home. This information is to outline your options for follow-up care. We provide all patients seen in our emergency department with a follow-up referral. The need for follow-up, as well as the timing and circumstances, are variable depending upon the specifics of your emergency department visit. If you don't have a primary care physician on staff, we will provide you with a referral. We always advise you to contact your personal physician following an emergency department visit to inform them of the circumstance of the visit and for follow-up with them and/or the need for any referrals to a consulting specialist. The emergency department will also refer you to a specialist when appropriate. This referral assures that you have the opportunity for follow-up care with a specialist. All of these measure are taken in an effort to provide you with optimal care, which includes your follow-up. Under all circumstances we always encourage you to contact your private physician who remains a resource for coordinating your care. When calling for follow-up care, please make the office aware that this follow-up is from your recent emergency room visit. If for any reason you are refused follow-up, please contact the [facility] Emergency Department at and asked to speak to the emergency department charge nurse. [facility] [address] [place] [id number] 1. Please follow-up with your FINANCIAL REPORTING ACCOUNTANT for routine well woman exam. He may take Tylenol and/or ibuprofen as needed for pain management. 2. Return to the ED as needed and as discussed.
[2017-05-08] MEDS ORDERED: Ondansetron 4 MG Tab.DIS PO ONE (15:46)
[2017-05-08 16:56] VITALS: BP 128/74
== END 2017-05-08 16:51 | disposition home or self-care (01) ==
LOC: MW.ED 14:23
DX: N93.9 Abnormal uterine and vaginal bleeding, unspecified (principal); Z79.899 Other long term (current) drug therapy
CPT/HCPCS: 36415; 81001; 84703; 85025; 99282; 99284

== ENCOUNTER 2017-06-28 20:41 | Emergency (ER) | payer OTHER ==
[2017-06-28] MEDS ORDERED: Ondansetron 4 MG/2 ML SDV IVPUSH ONE (20:43)
[2017-06-28] MEDS ORDERED: Sodium Chloride 0.9% 1,000 ML IV ONE (20:43)
--- NOTE | 2017-06-28 20:53 | EDM.PDOC ---
ED HPI GENERAL MEDICAL PROBLEM - General Stated Complaint: VOMITING Time Seen by Provider: 06/28/17 20:44 - History of Present Illness INITIAL COMMENTS - FREE TEXT/NARRATIVE: HISTORY AND PHYSICAL: History of present illness: Patient 22-year-old female presents with concern of intermittent nausea and vomiting over last week she denies fever chills chest pain she has had some body aches denies diarrhea. Review of systems: As per history of present illness and below otherwise all systems reviewed and negative. Past medical history: As per history of present illness and as reviewed below otherwise noncontributory. Surgical history: As per history of present illness and as reviewed below otherwise noncontributory. Social history: No reported history of drug or alcohol abuse. Family history: As per history of present illness and as reviewed below otherwise noncontributory. Physical exam: HEENT: Atraumatic, normocephalic, pupils reactive, negative for conjunctival pallor or scleral icterus, mucous membranes dry, throat clear, neck supple, nontender, trachea midline. Lungs: Clear to auscultation, breath sounds equal bilaterally, chest nontender. Heart: S1S2, regular, negative for clicks, rubs, or JVD. Abdomen: Soft, nondistended, nontender. Negative for masses or hepatosplenomegaly. Negative for costovertebral tenderness. Pelvis: Stable nontender. Genitourinary: Deferred. Rectal: Deferred. Extremities: Atraumatic, negative for cords or calf pain. Neurovascular unremarkable. Neuro: Awake, alert, oriented. Cranial nerves II through XII unremarkable. Cerebellum unremarkable. Motor and sensory unremarkable throughout. Exam nonfocal. Diagnostics: CBC CMP hCG influenza screen Therapeutics: Saline 1 L bolus Zofran 4 mg IV Impression: #1 vomiting with dehydration Definitive disposition and diagnosis as appropriate pending reevaluation and review of above. - Related Data Allergies Allergy/AdvReac Type Severity Reaction Status Date / Time No Known Allergies Allergy Verified 05/08/17 14:32 Home Meds: Home Meds buPROPion [Wellbutrin XL] 150 mg PO DAILY 10/29/16 [History] ClonazePAM [KlonoPIN] 0.5 mg PO BID #60 tablet 10/30/16 [Rx] Montelukast Sodium [Singulair] 10 mg PO DAILY 04/22/17 [History] valACYclovir HCl [valACYclovir] 1,000 mg PO DAILY 04/22/17 [History] Citalopram [Celexa] 40 mg PO DAILY 05/01/17 [History] Omalizumab [Xolair] 05/01/17 [History] Zolpidem [Ambien] 5 mg PO BID 05/01/17 [History] Past Medical History - Past Health History Medical/Surgical History: Denies Medical/Surgical History Respiratory History: Reports: Asthma Neurological History: Reports: Migraines Psychiatric History: Reports: Anxiety, Depression, Suicide Attempt, Suicidal Ideation - Infectious Disease History Infectious Disease History: Reports: Chicken Pox Social & Family History - Family History Family Medical History: Noncontributory - Tobacco Use Smoking Status *Q: Never Smoker Second Hand Smoke Exposure: No - Caffeine Use Caffeine Use: Reports: Tea - Recreational Drug Use Recreational Drug Use: No Drug Use in Last 12 Months: Yes Recreational Drug Type: Reports: Marijuana/Hashish Recreational Drug Use Frequency: Rarely - Living Situation & Occupation Living situation: Reports: Single ED ROS GENERAL - Review of Systems Review Of Systems: ROS reveals no pertinent complaints other than HPI. ED EXAM, GENERAL - Physical Exam Exam: See Below (See dictation) Course - Orders/Labs/Meds Orders: Active Orders 24 hr Category Date Time Status CBC WITH AUTO DIFF [HEME] Stat Lab 06/28/17 20:43 Ordered COMPREHENSIVE METABOLIC PN,CMP [CHEM] Stat Lab 06/28/17 20:43 Ordered HCG QUALITATIVE,SERUM [CHEM] Stat Lab 06/28/17 20:43 Ordered INFLUENZA A+B AG SCREEN [RM] Stat Lab 06/28/17 20:43 Uncollected LIPASE [CHEM] Stat Lab 06/28/17 20:43 Ordered Sodium Chloride 0.9% [Normal Saline] 1,000 ml Med 06/28/17 20:43 Active IV STAT Medication Orders Sodium Chloride (Normal Saline) 1,000 mls @ 999 mls/hr IV STAT ONE Stop: 06/28/17 21:43 Meds: Medications Generic Name Dose Route Start Last Admin Trade Name Freq PRN Reason Stop Dose Admin Sodium Chloride 1,000 mls @ 999 mls/hr 06/28/17 20:43 Normal Saline IV 06/28/17 21:43 STAT ONE Discontinued Medications Generic Name Dose Route Start Last Admin Trade Name Freq PRN Reason Stop Dose Admin Ondansetron HCl 4 mg 06/28/17 20:43 Zofran IVPUSH 06/28/17 20:44 ONETIME ONE Departure - Departure Time of Disposition: 20:51 Disposition: Home, Self-Care 01 Condition: Good Clinical Impression: Vomiting, Dehydration - Discharge Information Referrals: Charlee Jeffery MD [Primary Care Provider] - Additional Instructions: The following information is given to patients seen in the emergency department who are being discharged to home. This information is to outline your options for follow-up care. We provide all patients seen in our emergency department with a follow-up referral. The need for follow-up, as well as the timing and circumstances, are variable depending upon the specifics of your emergency department visit. If you don't have a primary care physician on staff, we will provide you with a referral. We always advise you to contact your personal physician following an emergency department visit to inform them of the circumstance of the visit and for follow-up with them and/or the need for any referrals to a consulting specialist. The emergency department will also refer you to a specialist when appropriate. This referral assures that you have the opportunity for followup care with a specialist. All of these measure are taken in an effort to provide you with optimal care, which includes your followup. Under all circumstances we always encourage you to contact your private physician who remains a resource for coordinating your care. When calling for followup care, please make the office aware that this follow-up is from your recent emergency room visit. If for any reason you are refused follow-up, please contact the [facility] emergency department at and asked to speak to the emergency department charge nurse. Push fluids Zofran as prescribed follow-up primary medical doctor on today's return as needed as discussed - My Orders Last 24 Hours: My Active Orders 06/28/17 20:43 CBC WITH AUTO DIFF [HEME] Stat COMPREHENSIVE METABOLIC PN,CMP [CHEM] Stat HCG QUALITATIVE,SERUM [CHEM] Stat INFLUENZA A+B AG SCREEN [RM] Stat LIPASE [CHEM] Stat Sodium Chloride 0.9% [Normal Saline] 1,000 ml IV STAT - Assessment/Plan Last 24 Hours: My Active Orders 06/28/17 20:43 CBC WITH AUTO DIFF [HEME] Stat COMPREHENSIVE METABOLIC PN,CMP [CHEM] Stat HCG QUALITATIVE,SERUM [CHEM] Stat INFLUENZA A+B AG SCREEN [RM] Stat LIPASE [CHEM] Stat Sodium Chloride 0.9% [Normal Saline] 1,000 ml IV STAT
[2017-06-28 21:30] LABS: CHLORIDE,CL 109 mmol/L (98-110); SODIUM,NA 140 mmol/L (136-146)
[2017-06-29 01:51] VITALS: BP 119/72
== END 2017-06-28 22:00 | disposition home or self-care (01) ==
LOC: MW.ED 20:41
DX: E86.0 Dehydration (principal); R11.2 Nausea with vomiting, unspecified; F32.9 Major depressive disorder, single episode, unspecified; Z79.899 Other long term (current) drug therapy
CPT/HCPCS: 36415; 80053; 83690; 84703; 85025; 87804; 96361; 96374; 99284; J2405; J7040; 99282

== ENCOUNTER 2017-08-11 12:56 | Emergency (ER) | payer OTHER ==
--- NOTE | 2017-08-11 14:32 | EDM.PDOC ---
ED HPI GENERAL MEDICAL PROBLEM - General Chief Complaint: Headache Stated Complaint: MIGRAINE Time Seen by Provider: 08/11/17 14:20 Source of Information: Reports: Patient History Limitations: Reports: No Limitations - History of Present Illness INITIAL COMMENTS - FREE TEXT/NARRATIVE: HISTORY AND PHYSICAL: History of present illness: Patient comes to the emergency room complaining of a migraine headache. She's had a headache since August 06 which has been responding to her normal migraine headache medications. She woke up this morning with a headache that she describes as the worst headache she's ever had. States that she's been on disability in the past due to her migraine headaches and even then they were not as bad as current. 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 She complains of blurred vision but denies double vision. Pain is over bilateral frontal and occipital scalp. Phonophobia and photophobia. She's not had any fever or chills. She denies any recent illness and infection. No abdominal pain nausea or vomiting. Review of systems: As per history of present illness and below otherwise all systems reviewed and negative. Past medical history: As per history of present illness and as reviewed below otherwise noncontributory. Surgical history: As per history of present illness and as reviewed below otherwise noncontributory. Social history: No reported history of drug or alcohol abuse. Family history: As per history of present illness and as reviewed below otherwise noncontributory. Physical exam: Gen.: Well-developed well-nourished female in no acute distress. She is laying on the exam table with her jacket over her head playing on her cell phone [id number] exam. HEENT: Atraumatic, normocephalic. TMs are pearly nelson and without erythema. Oral mucous membrane are pink and moist without tonsillar swelling erythema or exudate. PERRLA. EOMI. Neck supple, no lymphadenopathy. Lungs: Clear to auscultation, breath sounds equal bilaterally. Heart: S1S2, regular rate and rhythm. Abdomen: Soft, nondistended, nontender. No masses guarding or rebound. Pelvis: Stable nontender. Genitourinary: Deferred. Rectal: Deferred. Extremities: Atraumatic. Neurovascular unremarkable. Neuro: Awake, alert, oriented. Cranial nerves II through XII unremarkable. Motor and sensory unremarkable throughout. Exam nonfocal. Diagnostics: [Head CT without contrast] Therapeutics: [1 Liter normal saline, Toradol 30 mg IV, Reglan 10 mg IV, Zofran 4 mg IV, Benadryl 50 mg IV] Impression: [migraine BYRD] Plan: [Head CT shows no intracranial abnormality. Symptoms improve following medications and patient would like to be discharged to home. Encouraged her to go home, take her home medications, rest in a dark cool room. Follow-up with PCP. She is in agreement with today's plan. ] Definitive disposition and diagnosis as appropriate pending reevaluation and review of above. Headache Pain Score (Numeric/FACES): 9 - Related Data Allergies Allergy/AdvReac Type Severity Reaction Status Date / Time No Known Allergies Allergy Verified 08/11/17 13:18 Home Meds: Home Meds buPROPion [Wellbutrin XL] 150 mg PO DAILY 10/29/16 [History] Montelukast Sodium [Singulair] 10 mg PO DAILY 04/22/17 [History] valACYclovir HCl [valACYclovir] 400 mg PO DAILY 04/22/17 [History] Citalopram [Celexa] 40 mg PO DAILY 05/01/17 [History] Omalizumab [Xolair] 1 puff INH ASDIRECTED 05/01/17 [History] Zolpidem [Ambien] 5 mg PO BID 05/01/17 [History] ClonazePAM [KlonoPIN] 0.5 mg PO BID PRN 08/11/17 [History] Rizatriptan Benzoate [Rizatriptan] 10 mg PO TID PRN 08/11/17 [History] Past Medical History - Past Health History Medical/Surgical History: Denies Medical/Surgical History HEENT History: Reports: None Cardiovascular History: Reports: None Respiratory History: Reports: Asthma Gastrointestinal History: Reports: None Genitourinary History: Reports: None 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 Musculoskeletal History: Reports: None Neurological History: Reports: Migraines Psychiatric History: Reports: Anxiety, Depression, Schizophrenia, Suicide Attempt, Suicidal Ideation Endocrine/Metabolic History: Reports: None Hematologic History: Reports: None Immunologic History: Reports: None Oncologic (Cancer) History: Reports: None Dermatologic History: Reports: None - Infectious Disease History Infectious Disease History: Reports: Chicken Pox Social & Family History - Family History Family Medical History: Noncontributory - Tobacco Use Smoking Status *Q: Never Smoker Second Hand Smoke Exposure: No - Caffeine Use Caffeine Use: Reports: None - Recreational Drug Use Recreational Drug Use: No Drug Use in Last 12 Months: Yes Recreational Drug Type: Reports: Marijuana/Hashish Recreational Drug Use Frequency: Rarely - Living Situation & Occupation Living situation: Reports: Single ED ROS GENERAL - Review of Systems Review Of Systems: ROS reveals no pertinent complaints other than HPI. - Physical Exam Exam: See Below Course - Vital Signs Last Recorded V/S: Last Vital Signs Temp 96.6 F 08/11/17 13:14 Pulse 71 08/11/17 17:41 Resp 18 08/11/17 17:41 BP 106/65 08/11/17 17:41 Pulse Ox 99 08/11/17 17:41 - Orders/Labs/Meds Orders: Active Orders 24 hr Category Date Time Status Head wo Cont [CT] Stat Exams 08/11/17 14:30 Taken Meds: Medications Discontinued Medications Generic Name Dose Route Start Last Admin Trade Name Maria Esther PRN Reason Stop Dose Admin Diphenhydramine HCl 50 mg 08/11/17 16:07 08/11/17 16:22 Benadryl IVPUSH 08/11/17 16:08 50 mg ONETIME ONE Administration Sodium Chloride 1,000 mls @ 999 mls/hr 08/11/17 16:07 08/11/17 16:23 Normal Saline IV 08/11/17 17:07 999 mls/hr STAT ONE Administration Ketorolac Tromethamine 30 mg 08/11/17 16:07 08/11/17 16:21 Toradol IVPUSH 08/11/17 16:08 30 mg ONETIME ONE Administration Metoclopramide HCl 10 mg 08/11/17 16:07 08/11/17 16:25 Reglan IV 08/11/17 16:08 10 mg ONETIME ONE Administration Ondansetron HCl 4 mg 08/11/17 16:07 08/11/17 16:25 Zofran IVPUSH 08/11/17 16:08 4 mg ONETIME ONE Administration Departure - Departure Time of Disposition: 17:30 Disposition: Home, Self-Care 01 Condition: Good Clinical Impression: Migraine - Discharge Information Instructions: Migraine Headache Referrals: Charlee Jeffery MD [Primary Care Provider] - Forms: ED Department Discharge Additional Instructions: The following information is given to patients seen in the emergency department who are being discharged to home. This information is to outline your options for follow-up care. We provide all patients seen in our emergency department with a follow-up referral. The need for follow-up, as well as the timing and circumstances, are variable depending upon the specifics of your emergency department visit. If you don't have a primary care physician on staff, we will provide you with a referral. We always advise you to contact your personal physician following an emergency department visit to inform them of the circumstance of the visit and for follow-up with them and/or the need for any referrals to a consulting specialist. The emergency department will also refer you to a specialist when appropriate. This referral assures that you have the opportunity for follow-up care with a specialist. All of these measure are taken in an effort to provide you with optimal care, which includes your follow-up. Under all circumstances we always encourage you to contact your private physician who remains a resource for coordinating your care. When calling for follow-up care, please make the office aware that this follow-up is from your recent emergency room visit. If for any reason you are refused follow-up, please contact the [facility] emergency department at and asked to speak to the emergency department charge nurse. [facility] [address] [place] [id number] Follow-up with her regular primary care provider at the clinic listed above in 48-72 hours. Take all your medications as prescribed. Push fluids, go home and rest in a cool dark room. Return to ER as needed as discussed. - My Orders Last 24 Hours: My Active Orders 08/11/17 14:30 Head wo Cont [CT] Stat - Assessment/Plan Last 24 Hours: My Active Orders 08/11/17 14:30 Head wo Cont [CT] Stat
[2017-08-11] MEDS ORDERED: Sodium Chloride 0.9% 1,000 ML IV ONE (16:07)
[2017-08-11] MEDS ORDERED: Ketorolac 30 MG/ML SDV IVPUSH ONE (16:07)
[2017-08-11] MEDS ORDERED: Metoclopramide 10 MG/2 ML SDV IV ONE (16:07)
[2017-08-11] MEDS ORDERED: Ondansetron 4 MG/2 ML SDV IVPUSH ONE (16:07)
[2017-08-11] MEDS ORDERED: diphenhydrAMINE 50 MG/ML SDV IVPUSH ONE (16:07)
[2017-08-11 18:12] VITALS: BP 106/65
--- NOTE | 2017-08-12 14:56 | CT ---
EXAM DATE: 08/11/17 PATIENT'S AGE: 22 Patient: IMMANUEL ORDAZ Facility: [place], [place] Site . Site : 1996 Study: CT Head [id number] 4:01:21 PM Ordering Physician: Doctor Quintanilla Final Report: INDICATION: Headache. Seizure history. TECHNIQUE: CT Head without contrast. COMPARISON: MR brain 05/02/2017. FINDINGS: CSF spaces: Within normal limits for age. Brain parenchyma: The nelson-white differentiation is normal. No sign of mass, hemorrhage, or midline shift. Skull base and calvarium: Minimal fluid in the posterior left sphenoid sinus, decreased from prior MRI. The remainder of the visualized paranasal sinuses and mastoid air cells are clear. No skull fractures. IMPRESSION: 1. No acute intracranial abnormality 2. Minimal fluid in the posterior left sphenoid sinus, decreased from prior MRI. Dictated by Sharad Dozier MD @ 08/11/2017 4:06:49 PM Dictated by: Sharad Dozier MD @ 08/11/2017 16:06:59 (Electronic Signature) Report Signed by Proxy. GREGORIO
== END 2017-08-11 17:41 | disposition home or self-care (01) ==
LOC: MW.ED 12:56
DX: G43.909 Migraine, unspecified, not intractable, without status migrainosus (principal); F32.9 Major depressive disorder, single episode, unspecified; F20.9 Schizophrenia, unspecified; Z79.899 Other long term (current) drug therapy
CPT/HCPCS: 70450; 96361; 96374; 96375; 99284; J1200; J1885; J2405; J2765; J7040; 99283

== ENCOUNTER 2017-08-26 10:22 | Emergency (ER) | payer OTHER ==
--- NOTE | 2017-08-26 12:04 | EDM.PDOC ---
ED HPI GENERAL MEDICAL PROBLEM - General Chief Complaint: ENT Problem Stated Complaint: SINUSES Time Seen by Provider: 08/26/17 12:04 Source of Information: Reports: Patient - History of Present Illness INITIAL COMMENTS - FREE TEXT/NARRATIVE: HISTORY AND PHYSICAL: History of present illness: []Patient presents with sinus pain and pressure and tenderness over the last week increasing in severity no fever nausea vomiting chills sweats Mild sore throat and ear pain secondary to above Review of systems: As per history of present illness and below otherwise all systems reviewed and negative. Past medical history: As per history of present illness and as reviewed below otherwise noncontributory. Surgical history: As per history of present illness and as reviewed below otherwise noncontributory. Social history: No reported history of drug or alcohol abuse. Family history: As per history of present illness and as reviewed below otherwise noncontributory. Physical exam: HEENT: Atraumatic, normocephalic, pupils reactive, negative for conjunctival pallor or scleral icterus, mucous membranes moist, throat clear, neck supple, nontender, trachea midline. Tympanic membranes mild effusion no loss of landmarks no mastoid tenderness, pansinusitis tenderness frontal and maxillary purulent discharge] Lungs: Clear to auscultation, breath sounds equal bilaterally, chest nontender. Heart: S1S2, regular, negative for clicks, rubs, or JVD. Abdomen: Soft, nondistended, nontender. Negative for masses or hepatosplenomegaly. Negative for costovertebral tenderness. Pelvis: Stable nontender. Genitourinary: Deferred. Rectal: Deferred. Extremities: Atraumatic, negative for cords or calf pain. Neurovascular unremarkable. Neuro: Awake, alert, oriented. Cranial nerves II through XII unremarkable. Cerebellum unremarkable. Motor and sensory unremarkable throughout. Exam nonfocal. Diagnostics: [Influenza/strep ] Therapeutics: [Amoxicillin 875 by mouth twice a day [id number] symptomatic therapies ] Impression: [Sinusitis] Definitive disposition and diagnosis as appropriate pending reevaluation and review of above. Face Pain Score (Numeric/FACES): 4 - Related Data Allergies Allergy/AdvReac Type Severity Reaction Status Date / Time No Known Allergies Allergy Verified 08/26/17 10:54 Home Meds: Home Meds buPROPion [Wellbutrin XL] 150 mg PO DAILY 10/29/16 [History] valACYclovir HCl [valACYclovir] 400 mg PO DAILY 04/22/17 [History] Zolpidem [Ambien] 5 mg PO BID 05/01/17 [History] ClonazePAM [KlonoPIN] 0.5 mg PO BID PRN 08/11/17 [History] Albuterol [Ventolin HFA] 1 puff .XX ASDIRECTED 08/26/17 [History] Desogestrel-Ethinyl Estradiol [Reclipsen] 1 each PO DAILY 08/26/17 [History] Desvenlafaxine [Desvenlafaxine ER] 100 mg PO DAILY 08/26/17 [History] Lysine [L-Lysine] 1,000 mg PO DAILY 08/26/17 [History] Montelukast [Singulair] 10 mg PO DAILY 08/26/17 [History] Past Medical History - Past Health History Medical/Surgical History: Denies Medical/Surgical History HEENT History: Reports: None Cardiovascular History: Reports: None Respiratory History: Reports: Asthma Gastrointestinal History: Reports: None Genitourinary History: Reports: None 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 Musculoskeletal History: Reports: None Neurological History: Reports: Migraines Psychiatric History: Reports: Anxiety, Depression, Schizophrenia, Suicide Attempt, Suicidal Ideation Endocrine/Metabolic History: Reports: None Hematologic History: Reports: None Immunologic History: Reports: None Oncologic (Cancer) History: Reports: None Dermatologic History: Reports: None - Infectious Disease History Infectious Disease History: Reports: Chicken Pox Social & Family History - Family History Family Medical History: Noncontributory - Tobacco Use Smoking Status *Q: Never Smoker Second Hand Smoke Exposure: No - Caffeine Use Caffeine Use: Reports: Coffee, Tea - Recreational Drug Use Recreational Drug Use: No Drug Use in Last 12 Months: Yes Recreational Drug Type: Reports: Marijuana/Hashish Recreational Drug Use Frequency: Rarely - Living Situation & Occupation Living situation: Reports: Single ED ROS GENERAL - Review of Systems Review Of Systems: ROS reveals no pertinent complaints other than HPI. ED EXAM, GENERAL - Physical Exam Exam: See Below Course - Vital Signs Last Recorded V/S: Last Vital Signs Temp 97.5 F 08/26/17 11:03 Pulse 89 08/26/17 11:03 Resp 18 08/26/17 11:03 BP 117/63 08/26/17 11:03 Pulse Ox 98 08/26/17 11:03 - Orders/Labs/Meds Orders: Active Orders 24 hr Category Date Time Status CULTURE STREP A CONFIRMATION [RM] Stat Lab 08/26/17 12:14 Results STREP SCRN A RAPID W CULT CONF [RM] Stat Lab 08/26/17 12:14 Results Departure - Departure Time of Disposition: 12:43 Disposition: Home, Self-Care 01 Condition: Good Clinical Impression: Sinusitis Qualifiers: Sinusitis location: sphenoidal Chronicity: subacute Qualified Code(s): J01.30 - Acute sphenoidal sinusitis, unspecified - Discharge Information Referrals: Charlee Jeffery MD [Primary Care Provider] - Forms: ED Department Discharge Additional Instructions: Medication as prescribed Continue [id number] symptomatic therapies as discussed Return if symptoms persist worsen Follow-up with primary care as needed The following information is given to patients seen in the emergency department who are being discharged to home. This information is to outline your options for follow-up care. We provide all patients seen in our emergency department with a follow-up referral. The need for follow-up, as well as the timing and circumstances, are variable depending upon the specifics of your emergency department visit. If you don't have a primary care physician on staff, we will provide you with a referral. We always advise you to contact your personal physician following an emergency department visit to inform them of the circumstance of the visit and for follow-up with them and/or the need for any referrals to a consulting specialist. The emergency department will also refer you to a specialist when appropriate. This referral assures that you have the opportunity for follow-up care with a specialist. All of these measure are taken in an effort to provide you with optimal care, which includes your follow-up. Under all circumstances we always encourage you to contact your private physician who remains a resource for coordinating your care. When calling for follow-up care, please make the office aware that this follow-up is from your recent emergency room visit. If for any reason you are refused follow-up, please contact the [facility] emergency department at and asked to speak to the emergency department charge nurse. - My Orders Last 24 Hours: My Active Orders 08/26/17 12:14 CULTURE STREP A CONFIRMATION [RM] Stat STREP SCRN A RAPID W CULT CONF [RM] Stat - Assessment/Plan Last 24 Hours: My Active Orders 08/26/17 12:14 CULTURE STREP A CONFIRMATION [RM] Stat STREP SCRN A RAPID W CULT CONF [RM] Stat
[2017-08-26 15:21] VITALS: BP 125/75
== END 2017-08-26 13:05 | disposition home or self-care (01) ==
LOC: MW.ED 10:22
DX: J01.30 Acute sphenoidal sinusitis, unspecified (principal); J45.909 Unspecified asthma, uncomplicated; F32.9 Major depressive disorder, single episode, unspecified; Z79.899 Other long term (current) drug therapy
CPT/HCPCS: 87081; 87804; 87880; 99282; 99283

== ENCOUNTER 2017-09-10 10:33 | Emergency (ER) | payer OTHER ==
[2017-09-10] MEDS ORDERED: Ketorolac 60 MG/2 ML SDV IM ONE (10:51)
--- NOTE | 2017-09-10 10:56 | EDM.PDOC ---
ED HPI GENERAL MEDICAL PROBLEM - General Chief Complaint: ENT Problem Stated Complaint: oral pain Time Seen by Provider: 09/10/17 10:40 Source of Information: Reports: Patient History Limitations: Reports: No Limitations - History of Present Illness INITIAL COMMENTS - FREE TEXT/NARRATIVE: Presents to the ER reporting pain in an upper left molar status post extraction on August. She developed pain and a purulent discharge and bad taste yesterday. She called her dentist who told her to take Advil and go to the ER if the pain worsened. left upper teeth Pain Score (Numeric/FACES): 7 - Related Data Allergies Allergy/AdvReac Type Severity Reaction Status Date / Time No Known Allergies Allergy Verified 09/10/17 10:41 Home Meds: Home Meds buPROPion [Wellbutrin XL] 150 mg PO DAILY 10/29/16 [History] valACYclovir HCl [valACYclovir] 400 mg PO DAILY 04/22/17 [History] Zolpidem [Ambien] 5 mg PO BID 05/01/17 [History] ClonazePAM [KlonoPIN] 0.5 mg PO BID PRN 08/11/17 [History] Albuterol [Ventolin HFA] 1 puff .XX ASDIRECTED 08/26/17 [History] Desogestrel-Ethinyl Estradiol [Reclipsen] 1 each PO DAILY 08/26/17 [History] Desvenlafaxine [Desvenlafaxine ER] 100 mg PO DAILY 08/26/17 [History] Lysine [L-Lysine] 1,000 mg PO DAILY 08/26/17 [History] Montelukast [Singulair] 10 mg PO DAILY 08/26/17 [History] Chlorhexidine Gluconate 0.12% [Peridex 0.12% Rinse] 15 ml SSPIT BID 7 Days ml 09/10/17 [Rx] Clindamycin Hcl [IJD: Clindamycin HCl] 300 mg PO .EVERY 6 HOURS #40 cap [Rx] Past Medical History - Past Health History Medical/Surgical History: Denies Medical/Surgical History HEENT History: Reports: None Cardiovascular History: Reports: None Respiratory History: Reports: Asthma Gastrointestinal History: Reports: None Genitourinary History: Reports: None 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 Musculoskeletal History: Reports: None Neurological History: Reports: Migraines Psychiatric History: Reports: Anxiety, Depression, Schizophrenia, Suicide Attempt, Suicidal Ideation Endocrine/Metabolic History: Reports: None Hematologic History: Reports: None Immunologic History: Reports: None Oncologic (Cancer) History: Reports: None Dermatologic History: Reports: None - Infectious Disease History Infectious Disease History: Reports: Chicken Pox, Other (See Below) Other Infectious Disease History: childhood Social & Family History - Family History Family Medical History: Noncontributory - Tobacco Use Smoking Status *Q: Never Smoker Second Hand Smoke Exposure: No - Caffeine Use Caffeine Use: Reports: None - Recreational Drug Use Recreational Drug Use: No Drug Use in Last 12 Months: Yes Recreational Drug Type: Reports: Marijuana/Hashish Recreational Drug Use Frequency: Rarely - Living Situation & Occupation Living situation: Reports: Single ED ROS ENT - Review of Systems Review Of Systems: ROS reveals no pertinent complaints other than HPI. ED EXAM, ENT - Physical Exam Exam: See Below Exam Limited By: No Limitations General Appearance: Alert, No Apparent Distress Ears: Normal External Exam Nose: Normal Inspection Mouth/Throat: Other (Tooth #15 socket without blood clot, scant amount of purulent drainage and gingival swelling and tenderness) Head: Atraumatic, Normocephalic Neck: Normal Inspection Respiratory/Chest: No Respiratory Distress, Lungs Clear, Normal Breath Sounds Cardiovascular: Regular Rate, Rhythm, No Murmur Extremities: Normal Inspection Neurological: Alert, Oriented Psychiatric: Normal Affect, Normal Mood Skin: Warm, Dry, Intact, Normal Color, No Rash Lymphatic: No Adenopathy Course - Vital Signs Last Recorded V/S: Last Vital Signs Temp 37.0 C 09/10/17 10:42 Pulse 92 09/10/17 10:42 Resp 18 09/10/17 10:42 BP 119/64 09/10/17 10:42 Pulse Ox 98 09/10/17 10:42 Departure - Departure Time of Disposition: 11:13 Disposition: Home, Self-Care 01 Condition: Good Clinical Impression: Dry tooth socket - Discharge Information Referrals: Charlee Jeffery MD [Primary Care Provider] - Additional Instructions: 1. You have a dry socket. Follow up with your dentist. 2. 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 3. Swish and spit the Peridex twice daily starting when you pick it up. 4. Watch for fevers, lightheadedness, heart rate elevation, report promptly
[2017-09-10] MEDS ORDERED: Ondansetron 4 MG Tab.DIS ONE (11:00)
[2017-09-10] MEDS ORDERED: Ondansetron 4 MG Tab.DIS PO ONE (11:00)
[2017-09-10 11:35] VITALS: BP 118/76
== END 2017-09-10 11:31 | disposition home or self-care (01) ==
LOC: MW.ED 10:33
DX: M27.3 Alveolitis of jaws (principal); J45.909 Unspecified asthma, uncomplicated; Z79.899 Other long term (current) drug therapy
CPT/HCPCS: 96372; 99282; A9270; J1885

== ENCOUNTER 2017-09-21 16:59 | Emergency (ER) | payer OTHER ==
[2017-09-21] MEDS ORDERED: Sodium Chloride 0.9% 2.5 ML Syringe FLUSH PRN (17:24)
[2017-09-21] MEDS ORDERED: Sodium Chloride 0.9% 10 ML Syringe FLUSH PRN (17:24)
[2017-09-21] MEDS ORDERED: Sodium Chloride 0.9% 1,000 ML IV ONE (17:25)
[2017-09-21] MEDS ORDERED: Famotidine 20 MG/2 ML SDV IVPUSH ONE (17:25)
--- NOTE | 2017-09-21 17:25 | EDM.PDOC ---
ED HPI GENERAL MEDICAL PROBLEM - General Chief Complaint: Gastrointestinal Problem Stated Complaint: POSSIBLE ALCOHOL POSIONING Time Seen by Provider: 09/21/17 17:19 Source of Information: Reports: Patient History Limitations: Reports: No Limitations - History of Present Illness INITIAL COMMENTS - FREE TEXT/NARRATIVE: HISTORY AND PHYSICAL: []22-year-old female presenting with suspected alcohol poisoning History of Present Illness: Patient had 2 drinks last night Was seen in the clinic yesterday because she's had difficulty keeping her pills down for the last 2 weeks/she was given Zofran to take at home. States that she has been vomiting her medications even up to 7 hours after taking them Her stomach is not digesting pills Patient has genital herpes as which she is being treated for History of depression Urine hCG was obtained yesterday and negative verified by lab Review of Systems: As per history of present illness and below otherwise all systems reviewed and negative. Past medical history: As per history of present illness and as reviewed below otherwise noncontributory. Surgical history: As per history of present illness and as reviewed below otherwise noncontributory. Social history: No reported history of drug or alcohol abuse. Family history: As per history of present illness and as reviewed below otherwise noncontributory. Physical exam: Alert female with a flat affect answering questions appropriately in full sentences without any shortness of breath. Skin is warm and dry. HEENT: Atraumatic, normocehpalic, pupils reactive, negative for conjunctival pallor or scleral icterus, mucous membranes moist, throat clear, neck supple, nontender, trachea midline. Lungs: Clear to auscultation, breath sounds equal bilaterally, chest non tender. Heart: S1S2, regular, negative for clicks, rubs, or JVD. Abdomen: Soft, nondistended, nontender. Negative for masses or hepatossplenmegaly. Negative for costovertebral tenderness. Generalized lower pelvic tenderness or rebound and no guarding. Pelvis: Stable nontender. Genitourinary: Deferred. Rectal: Deferred Extremities: Atraumatic, negative for cords or calf pain. Neurovascular unremarkable. Neuro: Awake, alert, oriented. Cranial nerves II through XII unremarkable. Cerebellum unremarkable. Motor and sensory unremarkable throughout. Exam nonfocal. Diagnostics: [CBC CMP amylase lipase ETOH UDS UA urine culture] Therapeutics: []IV fluid Impression: []Constipation Plan: []Discharged home Mineral oil Follow-up with your primary care Return when necessary as discussed Definitive disposition and diagnosis as appropriate pending Onset: Gradual Duration: Week(s): Location: Reports: Abdomen, Generalized Severity: Moderate Improves with: Reports: None Worsens with: Reports: None headache Pain Score (Numeric/FACES): 3 - Related Data Allergies Allergy/AdvReac Type Severity Reaction Status Date / Time No Known Allergies Allergy Verified 09/21/17 17:10 Home Meds: Home Meds Acyclovir 400 mg PO DAILY 09/21/17 [History] Albuterol Sulfate [Ventolin Hfa] 09/21/17 [History] ClonazePAM [KlonoPIN] 0.5 mg PO BID 09/21/17 [History] Desogestrel-Ethinyl Estradiol [Reclipsen 28 Day Tablet] 1 tab PO DAILY 09/21/17 [History] Desvenlafaxine [Desvenlafaxine ER] 100 mg PO DAILY 09/21/17 [History] Lysine [L-Lysine] 2 tab PO DAILY 09/21/17 [History] Montelukast [Singulair] 10 mg PO DAILY 09/21/17 [History] Zolpidem Tartrate [Edluar] 10 mg SL BEDTIME 09/21/17 [History] buPROPion HCl [Wellbutrin Xl] 300 mg PO DAILY 09/21/17 [History] Past Medical History - Past Health History Medical/Surgical History: Denies Medical/Surgical History HEENT History: Reports: None Cardiovascular History: Reports: None Respiratory History: Reports: Asthma Gastrointestinal History: Reports: None Genitourinary History: Reports: None SECOND RIGGER History: Reports: None Musculoskeletal History: Reports: None Neurological History: Reports: Migraines Psychiatric History: Reports: Anxiety, Depression, Schizophrenia, Suicide Attempt, Suicidal Ideation Endocrine/Metabolic History: Reports: None Hematologic History: Reports: None Immunologic History: Reports: None Oncologic (Cancer) History: Reports: None Dermatologic History: Reports: None - Infectious Disease History Infectious Disease History: Reports: Chicken Pox, Other (See Below) Other Infectious Disease History: childhood Social & Family History - Family History Family Medical History: Noncontributory - Tobacco Use Smoking Status *Q: Never Smoker Second Hand Smoke Exposure: No - Caffeine Use Caffeine Use: Reports: None - Recreational Drug Use Recreational Drug Use: No Drug Use in Last 12 Months: Yes Recreational Drug Type: Reports: Marijuana/Hashish Recreational Drug Use Frequency: Rarely - Living Situation & Occupation Living situation: Reports: Single ED ROS GENERAL - Review of Systems Review Of Systems: ROS reveals no pertinent complaints other than HPI. ED EXAM, GI/ABD - Physical Exam Exam: See Below (see dictation) Course - Vital Signs Last Recorded V/S: Last Vital Signs Temp 37.4 C 09/21/17 19:57 Pulse 74 09/21/17 19:57 Resp 17 09/21/17 19:57 BP 127/76 09/21/17 19:57 Pulse Ox 100 09/21/17 19:57 - Orders/Labs/Meds Orders: Active Orders 24 hr Category Date Time Status EKG Documentation Completion [RC] STAT Care 09/21/17 17:24 Active Abdomen 2V AP Flat Upright [CR] Stat Exams 09/21/17 17:34 Taken Sodium Chloride 0.9% [Saline Flush] Med 09/21/17 17:24 Active 10 ml FLUSH ASDIRECTED PRN Sodium Chloride 0.9% [Saline Flush] Med 09/21/17 17:24 Active 2.5 ml FLUSH ASDIRECTED PRN Saline Lock Insert [OM.PC] Stat Oth 09/21/17 17:24 Ordered Medication Orders Sodium Chloride (Saline Flush) 10 ml FLUSH ASDIRECTED PRN PRN Reason: Keep Vein Open Sodium Chloride (Saline Flush) 2.5 ml FLUSH ASDIRECTED PRN PRN Reason: Keep Vein Open Labs: Laboratory Tests 09/21/17 09/21/17 09/21/17 Range/Units 17:33 17:33 17:33 WBC 10.55 (4.0-11.0) K/uL RBC 4.09 L (4.30-5.90) M/uL Hgb 12.9 (12.0-16.0) g/dL Hct 37.9 (36.0-46.0) % MCV 92.7 (80.0-98.0) fL MCH 31.5 (27.0-32.0) pg MCHC 34.0 (31.0-37.0) g/dL RDW Std Deviation 40.1 (28.0-62.0) fl RDW Coeff of Josh 12 (11.0-15.0) % Plt Count 333 (150-400) K/uL MPV 9.20 (7.40-12.00) fL Neut % (Auto) 59.1 (48.0-80.0) % Lymph % (Auto) 33.5 (16.0-40.0) % Sutton % (Auto) 6.8 (0.0-15.0) % Eos % (Auto) 0.4 (0.0-7.0) % Baso % (Auto) 0.2 (0.0-1.5) % Neut # (Auto) 6.2 H (1.4-5.7) K/uL Lymph # (Auto) 3.5 H (0.6-2.4) K/uL Sutton # (Auto) 0.7 (0.0-0.8) K/uL Eos # (Auto) 0.0 (0.0-0.7) K/uL Baso # (Auto) 0.0 (0.0-0.1) K/uL Nucleated RBC % 0.0 /100WBC Nucleated RBCs # 0 K/uL Sodium 139 (136-145) mmol/L Potassium 4.2 (3.5-5.1) mmol/L Chloride 105 (98-107) mmol/L Carbon Dioxide 24.9 (21.0-32.0) mmol/L BUN 11 (7.0-18.0) mg/dL Creatinine 0.7 (0.6-1.0) mg/dL Est Cr Clr Drug Dosing 100.55 mL/min Estimated GFR (MDRD) > 60.0 ml/min Glucose 89 (74-106) mg/dL Calcium 9.0 (8.5-10.1) mg/dL Total Bilirubin 0.2 (0.2-1.0) mg/dL AST 18 (15-37) IU/L ALT 21 (14-63) IU/L Alkaline Phosphatase 38 L (46-116) U/L Total Protein 7.4 (6.4-8.2) g/dL Albumin 3.9 (3.4-5.0) g/dL Globulin 3.5 (2.0-3.5) g/dL Albumin/Globulin Ratio 1.1 L (1.3-2.8) Amylase 57 (25-115) U/L Lipase 73 (73-393) U/L TSH 3rd Generation 1.07 (0.36-3.74) uIU/mL HCG, Qual (NEG) Urine Color Urine Appearance Urine pH (5.0-8.0) Ur Specific Ransom (1.001-1.035) Urine Protein (NEGATIVE) mg/dL Urine Glucose (UA) (NEGATIVE) mg/dL Urine Ketones (NEGATIVE) mg/dL Urine Occult Blood (NEGATIVE) Urine Nitrite (NEGATIVE) Urine Bilirubin (NEGATIVE) Urine Urobilinogen (<2.0) EU/dL Ur Leukocyte Esterase (NEGATIVE) Urine RBC (0-2/HPF) Urine WBC (0-5/HPF) Ur Epithelial Cells (NONE-FEW) Urine Bacteria (NEGATIVE) Urine Mucus (NONE-MOD) Urine Opiates Screen (NEGATIVE) Ur Oxycodone Screen (NEGATIVE) Urine Methadone Screen (NEGATIVE) Ur Barbiturates Screen (NEGATIVE) Ur Phencyclidine Scrn (NEGATIVE) Ur Amphetamine Screen (NEGATIVE) U Methamphetamines Scrn (NEGATIVE) U Benzodiazepines Scrn (NEGATIVE) U Cocaine Metab Screen (NEGATIVE) U Marijuana (THC) Screen (NEGATIVE) Ethyl Alcohol <3 mg/dL H. pylori IgG Antibody NEGATIVE (NEG) 09/21/17 09/21/17 09/21/17 Range/Units 18:11 18:35 18:35 WBC (4.0-11.0) K/uL RBC (4.30-5.90) M/uL Hgb (12.0-16.0) g/dL Hct (36.0-46.0) % MCV (80.0-98.0) fL MCH (27.0-32.0) pg MCHC (31.0-37.0) g/dL RDW Std Deviation (28.0-62.0) fl RDW Coeff of Josh (11.0-15.0) % Plt Count (150-400) K/uL MPV (7.40-12.00) fL Neut % (Auto) (48.0-80.0) % Lymph % (Auto) (16.0-40.0) % Sutton % (Auto) (0.0-15.0) % Eos % (Auto) (0.0-7.0) % Baso % (Auto) (0.0-1.5) % Neut # (Auto) (1.4-5.7) K/uL Lymph # (Auto) (0.6-2.4) K/uL Sutton # (Auto) (0.0-0.8) K/uL Eos # (Auto) (0.0-0.7) K/uL Baso # (Auto) (0.0-0.1) K/uL Nucleated RBC % /100WBC Nucleated RBCs # K/uL Sodium (136-145) mmol/L Potassium (3.5-5.1) mmol/L Chloride (98-107) mmol/L Carbon Dioxide (21.0-32.0) mmol/L BUN (7.0-18.0) mg/dL Creatinine (0.6-1.0) mg/dL Est Cr Clr Drug Dosing mL/min Estimated GFR (MDRD) ml/min Glucose (74-106) mg/dL Calcium (8.5-10.1) mg/dL Total Bilirubin (0.2-1.0) mg/dL AST (15-37) IU/L ALT (14-63) IU/L Alkaline Phosphatase (46-116) U/L Total Protein (6.4-8.2) g/dL Albumin (3.4-5.0) g/dL Globulin (2.0-3.5) g/dL Albumin/Globulin Ratio (1.3-2.8) Amylase (25-115) U/L Lipase (73-393) U/L TSH 3rd Generation (0.36-3.74) uIU/mL HCG, Qual NEGATIVE (NEG) Urine Color YELLOW Urine Appearance CLEAR Urine pH 8.5 H (5.0-8.0) Ur Specific Ransom 1.015 (1.001-1.035) Urine Protein 30 (NEGATIVE) mg/dL Urine Glucose (UA) NEGATIVE (NEGATIVE) mg/dL Urine Ketones NEGATIVE (NEGATIVE) mg/dL Urine Occult Blood NEGATIVE (NEGATIVE) Urine Nitrite NEGATIVE (NEGATIVE) Urine Bilirubin NEGATIVE (NEGATIVE) Urine Urobilinogen 0.2 (<2.0) EU/dL Ur Leukocyte Esterase NEGATIVE (NEGATIVE) Urine RBC 0-1 (0-2/HPF) Urine WBC 0-1 (0-5/HPF) Ur Epithelial Cells RARE (NONE-FEW) Urine Bacteria RARE (NEGATIVE) Urine Mucus LIGHT (NONE-MOD) Urine Opiates Screen NEGATIVE (NEGATIVE) Ur Oxycodone Screen NEGATIVE (NEGATIVE) Urine Methadone Screen NEGATIVE (NEGATIVE) Ur Barbiturates Screen NEGATIVE (NEGATIVE) Ur Phencyclidine Scrn NEGATIVE (NEGATIVE) Ur Amphetamine Screen NEGATIVE (NEGATIVE) U Methamphetamines Scrn NEGATIVE (NEGATIVE) U Benzodiazepines Scrn NEGATIVE (NEGATIVE) U Cocaine Metab Screen NEGATIVE (NEGATIVE) U Marijuana (THC) Screen NEGATIVE (NEGATIVE) Ethyl Alcohol mg/dL H. pylori IgG Antibody (NEG) Meds: Medications Generic Name Dose Route Start Last Admin Trade Name Freq PRN Reason Stop Dose Admin Sodium Chloride 10 ml 09/21/17 17:24 Saline Flush FLUSH ASDIRECTED PRN Keep Vein Open Sodium Chloride 2.5 ml 09/21/17 17:24 Saline Flush FLUSH ASDIRECTED PRN Keep Vein Open Discontinued Medications Generic Name Dose Route Start Last Admin Trade Name Freq PRN Reason Stop Dose Admin Famotidine 20 mg 09/21/17 17:25 09/21/17 17:59 Pepcid IVPUSH 09/21/17 17:26 20 mg ONETIME ONE Administration Sodium Chloride 1,000 mls @ 999 mls/hr 09/21/17 17:25 09/21/17 17:59 Normal Saline IV 09/21/17 18:25 999 mls/hr STAT ONE Administration Departure - Departure Time of Disposition: 20:08 Disposition: Home, Self-Care 01 Condition: Good Clinical Impression: Constipation - Discharge Information Instructions: Constipation, Adult Referrals: Charlee Jeffery MD [Primary Care Provider] - Forms: ED Department Discharge Additional Instructions: The following information is given to patients seen in the emergency department who are being discharged to home. This information is to outline your options for follow-up care. We provide all patients seen in our emergency department with a follow-up referral. The need for follow-up, as well as the timing and circumstances, are variable depending upon the specifics of your emergency department visit. If you don't have a primary care physician on staff, we will provide you with a referral. We always advise you to contact your personal physician following an emergency department visit to inform them of the circumstance of the visit and for follow-up with them and/or the need for any referrals to a consulting specialist. The emergency department will also refer you to a specialist when appropriate. This referral assures that you have the opportunity for followup care with a specialist. All of these measure are taken in an effort to provide you with optimal care, which includes your followup. Under all circumstances we always encourage you to contact your private physician who remains a resource for coordinating your care. When calling for followup care, please make the office aware that this follow-up is from your recent emergency room visit. If for any reason you are refused follow-up, please contact the [facility] emergency department at and asked to speak to the emergency department charge nurse. You have constipation Mineral oil as discussed Follow-up with your primary care provider Return to the emergency room as necessary as discussed - My Orders Last 24 Hours: My Active Orders 09/21/17 17:24 EKG Documentation Completion [RC] STAT Sodium Chloride 0.9% [Saline Flush] 10 ml FLUSH ASDIRECTED PRN Sodium Chloride 0.9% [Saline Flush] 2.5 ml FLUSH ASDIRECTED PRN Saline Lock Insert [OM.PC] Stat 09/21/17 17:34 Abdomen 2V AP Flat Upright [CR] Stat - Assessment/Plan Last 24 Hours: My Active Orders 09/21/17 17:24 EKG Documentation Completion [RC] STAT Sodium Chloride 0.9% [Saline Flush] 10 ml FLUSH ASDIRECTED PRN Sodium Chloride 0.9% [Saline Flush] 2.5 ml FLUSH ASDIRECTED PRN Saline Lock Insert [OM.PC] Stat 09/21/17 17:34 Abdomen 2V AP Flat Upright [CR] Stat
[2017-09-21 18:16] LABS: CHLORIDE,CL 105 mmol/L (98-107); SODIUM,NA 139 mmol/L (136-145)
[2017-09-21 19:58] VITALS: BP 127/76
--- NOTE | 2017-09-23 15:24 | CR ---
EXAM DATE: 09/21/17 PATIENT'S AGE: 22 Patient: IMMANUEL ORDAZ Facility: [place], [place] Site . Site : 1995 Study: XRay Abdomen [id number] 7:25:59 PM Ordering Physician: Doctor Quintanilla Final Report: INDICATION: Abdominal pain TECHNIQUE: Abdomen do view. COMPARISON: None FINDINGS: Bowel: Bowel pattern is normal. Colonic fecal retention involving the sigmoid colon. Soft tissues: No sign of free air. No sign of soft tissue mass. No suspicious calcifications. Bones: Unremarkable for age. IMPRESSION: Colonic fecal retention throughout the sigmoid colon. Otherwise unremarkable abdomen. Dictated by Dion Saldana MD @ 09/21/2017 8:05:09 PM Dictated by: Dion Saldana MD @ 09/21/2017 20:05:16 (Electronic Signature) Report Signed by Proxy. GREGORIO
== END 2017-09-21 20:18 | disposition home or self-care (01) ==
LOC: MW.ED 16:59
DX: K59.00 Constipation, unspecified (principal); R51 Headache; J45.909 Unspecified asthma, uncomplicated; Z79.899 Other long term (current) drug therapy
CPT/HCPCS: 74019; 80053; 80305; 81001; 82150; 83690; 84443; 84703; 85025; 86677; 93005; 96361; 96374; 99284; G0480; J7040; 99283

== ENCOUNTER 2017-09-28 22:22 | Emergency (ER) | payer OTHER ==
--- NOTE | 2017-09-28 22:36 | EDM.PDOC ---
ED HPI GENERAL MEDICAL PROBLEM - General Chief Complaint: General Stated Complaint: PAIN LT JAW/INSIDE MOUTH Time Seen by Provider: 09/28/17 22:32 - History of Present Illness INITIAL COMMENTS - FREE TEXT/NARRATIVE: HISTORY AND PHYSICAL: History of present illness: Patient 22-year-old white female presents with concern of dental pain after dental extraction Review of systems: As per history of present illness and below otherwise all systems reviewed and negative. Past medical history: As per history of present illness and as reviewed below otherwise noncontributory. Surgical history: As per history of present illness and as reviewed below otherwise noncontributory. Social history: No reported history of drug or alcohol abuse. Family history: As per history of present illness and as reviewed below otherwise noncontributory. Physical exam: HEENT: Atraumatic, normocephalic, pupils reactive, negative for conjunctival pallor or scleral icterus, mucous membranes moist, throat clear, neck supple, nontender, trachea midline. Oropharynx with molar extraction noted Lungs: Clear to auscultation, breath sounds equal bilaterally, chest nontender. Heart: S1S2, regular, negative for clicks, rubs, or JVD. Abdomen: Soft, nondistended, nontender. Negative for masses or hepatosplenomegaly. Negative for costovertebral tenderness. Pelvis: Stable nontender. Genitourinary: Deferred. Rectal: Deferred. Extremities: Atraumatic, negative for cords or calf pain. Neurovascular unremarkable. Neuro: Awake, alert, oriented. Cranial nerves II through XII unremarkable. Cerebellum unremarkable. Motor and sensory unremarkable throughout. Exam nonfocal. Diagnostics: None Therapeutics: None Impression: 1 dentalgia status post dental extraction Definitive disposition and diagnosis as appropriate pending reevaluation and review of above. left jaw Pain Score (Numeric/FACES): 7 - Related Data Allergies Allergy/AdvReac Type Severity Reaction Status Date / Time hydrocodone Allergy Itching Verified 09/28/17 22:30 Home Meds: Home Meds Acyclovir 400 mg PO DAILY 09/21/17 [History] Albuterol Sulfate [Ventolin Hfa] 1 - 2 puff INH QID PRN 09/21/17 [History] ClonazePAM [KlonoPIN] 0.5 mg PO BID PRN 09/21/17 [History] Desogestrel-Ethinyl Estradiol [Reclipsen 28 Day Tablet] 1 tab PO DAILY 09/21/17 [History] Desvenlafaxine [Desvenlafaxine ER] 100 mg PO DAILY 09/21/17 [History] Lysine [L-Lysine] 2 tab PO DAILY 09/21/17 [History] Montelukast [Singulair] 10 mg PO DAILY 09/21/17 [History] Zolpidem Tartrate [Edluar] 10 mg SL BEDTIME 09/21/17 [History] buPROPion HCl [Wellbutrin Xl] 300 mg PO DAILY 09/21/17 [History] Past Medical History - Past Health History Medical/Surgical History: Denies Medical/Surgical History HEENT History: Reports: None Cardiovascular History: Reports: None Respiratory History: Reports: Asthma Gastrointestinal History: Reports: None Genitourinary History: Reports: None Other Genitourinary History: genital herpes [employer]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 Musculoskeletal History: Reports: None Neurological History: Reports: Migraines Psychiatric History: Reports: Anxiety, Depression, Schizophrenia, Suicide Attempt, Suicidal Ideation Endocrine/Metabolic History: Reports: None Hematologic History: Reports: None Immunologic History: Reports: None Oncologic (Cancer) History: Reports: None Dermatologic History: Reports: None - Infectious Disease History Infectious Disease History: Reports: Chicken Pox, Other (See Below) Other Infectious Disease History: childhood Social & Family History - Family History Family Medical History: Noncontributory - Tobacco Use Smoking Status *Q: Never Smoker Second Hand Smoke Exposure: No - Caffeine Use Caffeine Use: Reports: None - Recreational Drug Use Recreational Drug Use: No Drug Use in Last 12 Months: Yes Recreational Drug Type: Reports: Marijuana/Hashish Recreational Drug Use Frequency: Rarely - Living Situation & Occupation Living situation: Reports: Single ED ROS GENERAL - Review of Systems Review Of Systems: ROS reveals no pertinent complaints other than HPI. ED EXAM, GENERAL - Physical Exam Exam: See Below (See dictation) Course - Vital Signs Last Recorded V/S: Last Vital Signs Temp 36.6 C 09/28/17 22:28 Pulse 109 H 09/28/17 22:28 Resp 16 09/28/17 22:28 BP 137/88 09/28/17 22:28 Pulse Ox 98 09/28/17 22:28 Departure - Departure Time of Disposition: 22:36 Disposition: Home, Self-Care 01 Condition: Good Clinical Impression: Dentalgia - Discharge Information Referrals: Charlee Jeffery MD [Primary Care Provider] - Additional Instructions: The following information is given to patients seen in the emergency department who are being discharged to home. This information is to outline your options for follow-up care. We provide all patients seen in our emergency department with a follow-up referral. The need for follow-up, as well as the timing and circumstances, are variable depending upon the specifics of your emergency department visit. If you don't have a primary care physician on staff, we will provide you with a referral. We always advise you to contact your personal physician following an emergency department visit to inform them of the circumstance of the visit and for follow-up with them and/or the need for any referrals to a consulting specialist. The emergency department will also refer you to a specialist when appropriate. This referral assures that you have the opportunity for followup care with a specialist. All of these measure are taken in an effort to provide you with optimal care, which includes your followup. Under all circumstances we always encourage you to contact your private physician who remains a resource for coordinating your care. When calling for followup care, please make the office aware that this follow-up is from your recent emergency room visit. If for any reason you are refused follow-up, please contact the [facility] emergency department at and asked to speak to the emergency department charge nurse. Follow-up dentist as discussed Tylenol as directed and return as needed as discussed
[2017-09-29 00:59] VITALS: BP 136/87
== END 2017-09-28 22:50 | disposition home or self-care (01) ==
LOC: MW.ED 22:22
DX: K08.89 Other specified disorders of teeth and supporting structures (principal); J45.909 Unspecified asthma, uncomplicated; F41.9 Anxiety disorder, unspecified; F32.9 Major depressive disorder, single episode, unspecified; Z88.5 Allergy status to narcotic agent; Z79.82 Long term (current) use of aspirin
CPT/HCPCS: 99282

== ENCOUNTER 2017-10-22 21:27 | Emergency (ER) | payer OTHER ==
--- NOTE | 2017-10-22 21:53 | EDM.PDOC ---
ED HPI GENERAL MEDICAL PROBLEM - General Chief Complaint: ENT Problem Stated Complaint: TONSILS PAIN Time Seen by Provider: 10/22/17 21:52 Source of Information: Reports: Patient - History of Present Illness INITIAL COMMENTS - FREE TEXT/NARRATIVE: HISTORY AND PHYSICAL: History of present illness: Patient presents with mild sore throat and swollen tonsils for 10 days intermittent subjective fever at home no nausea vomiting chills sweats No muffled voice trismus or drooling Review of systems: As per history of present illness and below otherwise all systems reviewed and negative. Past medical history: As per history of present illness and as reviewed below otherwise noncontributory. Surgical history: As per history of present illness and as reviewed below otherwise noncontributory. Social history: No reported history of drug or alcohol abuse. Family history: As per history of present illness and as reviewed below otherwise noncontributory. Physical exam: HEENT: Atraumatic, normocephalic, pupils reactive, negative for conjunctival pallor or scleral icterus, mucous membranes moist, throat clear, neck supple, nontender, trachea midline. Moderate erythema tonsils 2+ no exudates no meningeal sign Lungs: Clear to auscultation, breath sounds equal bilaterally, chest nontender. Heart: S1S2, regular, negative for clicks, rubs, or JVD. Abdomen: Soft, nondistended, nontender. Negative for masses or hepatosplenomegaly. Negative for costovertebral tenderness. Pelvis: Stable nontender. Genitourinary: Deferred. Rectal: Deferred. Extremities: Atraumatic, negative for cords or calf pain. Neurovascular unremarkable. Neuro: Awake, alert, oriented. Cranial nerves II through XII unremarkable. Cerebellum unremarkable. Motor and sensory unremarkable throughout. Exam nonfocal. Diagnostics: Rapid strep Therapeutics: [Amoxicillin 875 by mouth twice a day #20 no refill ] Impression: [] pharyngitis Definitive disposition and diagnosis as appropriate pending reevaluation and review of above. throat Pain Score (Numeric/FACES): 7 - Related Data Allergies Allergy/AdvReac Type Severity Reaction Status Date / Time hydrocodone Allergy Itching Verified 10/22/17 21:35 Home Meds: Home Meds Acyclovir 400 mg PO DAILY 09/21/17 [History] Albuterol Sulfate [Ventolin Hfa] 1 - 2 puff INH QID PRN 09/21/17 [History] ClonazePAM [KlonoPIN] 0.5 mg PO BID PRN 09/21/17 [History] Desogestrel-Ethinyl Estradiol [Reclipsen 28 Day Tablet] 1 tab PO DAILY 09/21/17 [History] Desvenlafaxine [Desvenlafaxine ER] 100 mg PO DAILY 09/21/17 [History] Lysine [L-Lysine] 1 tab PO DAILY 09/21/17 [History] Montelukast [Singulair] 10 mg PO DAILY 09/21/17 [History] Zolpidem Tartrate [Edluar] 10 mg SL BEDTIME 09/21/17 [History] buPROPion HCl [Wellbutrin Xl] 300 mg PO DAILY 09/21/17 [History] Past Medical History - Past Health History Medical/Surgical History: Denies Medical/Surgical History HEENT History: Reports: None Cardiovascular History: Reports: None Respiratory History: Reports: Asthma Gastrointestinal History: Reports: None Genitourinary History: Reports: None Other Genitourinary History: genital herpes [employer]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 Musculoskeletal History: Reports: None Neurological History: Reports: Migraines Psychiatric History: Reports: Anxiety, Depression, Schizophrenia, Suicide Attempt, Suicidal Ideation Endocrine/Metabolic History: Reports: None Hematologic History: Reports: None Immunologic History: Reports: None Oncologic (Cancer) History: Reports: None Dermatologic History: Reports: None - Infectious Disease History Infectious Disease History: Reports: Chicken Pox, Other (See Below) Other Infectious Disease History: childhood Social & Family History - Family History Family Medical History: Noncontributory - Tobacco Use Smoking Status *Q: Never Smoker Second Hand Smoke Exposure: No - Caffeine Use Caffeine Use: Reports: None - Recreational Drug Use Recreational Drug Use: No Drug Use in Last 12 Months: Yes Recreational Drug Type: Reports: Marijuana/Hashish Recreational Drug Use Frequency: Rarely - Living Situation & Occupation Living situation: Reports: Single ED ROS GENERAL - Review of Systems Review Of Systems: ROS reveals no pertinent complaints other than HPI. ED EXAM, GENERAL - Physical Exam Exam: See Below Course - Vital Signs Last Recorded V/S: Last Vital Signs Temp 98.5 F 10/22/17 21:27 Pulse 87 10/22/17 21:27 Resp 18 10/22/17 21:27 BP 130/84 10/22/17 21:27 Pulse Ox 97 10/22/17 21:27 - Orders/Labs/Meds Orders: Active Orders 24 hr Category Date Time Status STREP SCRN A RAPID W CULT CONF [RM] Stat Lab 10/22/17 21:50 Ordered Departure - Departure Time of Disposition: 21:53 Disposition: Home, Self-Care 01 Condition: Good Clinical Impression: Pharyngitis - Discharge Information Referrals: PCP,None [Primary Care Provider] - Forms: ED Department Discharge Additional Instructions: The following information is given to patients seen in the emergency department who are being discharged to home. This information is to outline your options for follow-up care. We provide all patients seen in our emergency department with a follow-up referral. The need for follow-up, as well as the timing and circumstances, are variable depending upon the specifics of your emergency department visit. If you don't have a primary care physician on staff, we will provide you with a referral. We always advise you to contact your personal physician following an emergency department visit to inform them of the circumstance of the visit and for follow-up with them and/or the need for any referrals to a consulting specialist. The emergency department will also refer you to a specialist when appropriate. This referral assures that you have the opportunity for follow-up care with a specialist. All of these measure are taken in an effort to provide you with optimal care, which includes your follow-up. Under all circumstances we always encourage you to contact your private physician who remains a resource for coordinating your care. When calling for follow-up care, please make the office aware that this follow-up is from your recent emergency room visit. If for any reason you are refused follow-up, please contact the [facility] emergency department at and asked to speak to the emergency department charge nurse.
[2017-10-22 22:16] VITALS: BP 124/80
== END 2017-10-22 22:10 | disposition home or self-care (01) ==
LOC: MW.ED 21:27
DX: J02.9 Acute pharyngitis, unspecified (principal); Z88.5 Allergy status to narcotic agent; Z79.899 Other long term (current) drug therapy
CPT/HCPCS: 87081; 87880; 99282; 99283

== ENCOUNTER 2017-12-22 08:47 | Emergency (ER) | payer OTHER ==
[2017-12-22] MEDS ORDERED: Ondansetron 4 MG Tab.DIS PO ONE ×2 (09:06→09:36)
--- NOTE | 2017-12-22 09:06 | EDM.PDOC ---
ED HPI GENERAL MEDICAL PROBLEM - General Chief Complaint: Respiratory Problem Stated Complaint: ASTHMA ATTACK Time Seen by Provider: 12/22/17 08:52 Source of Information: Reports: Patient History Limitations: Reports: No Limitations - History of Present Illness INITIAL COMMENTS - FREE TEXT/NARRATIVE: History of present illness: []Patient had a migraine at 4:30 this morning and took Maxalt for the first time and shortly after started feeling anxious, short of breath with numbness and tingling all over her body. Patient's headache is now gone however she still feels tingly all over. Denies any chest pain or shortness of breath but is nauseous. Review of systems: As per history of present illness and below otherwise all systems reviewed and negative. Past medical history: As per history of present illness and as reviewed below otherwise noncontributory. Surgical history: As per history of present illness and as reviewed below otherwise noncontributory. Social history: No reported history of drug or alcohol abuse. Family history: As per history of present illness and as reviewed below otherwise noncontributory. Physical exam: General: Well developed, well nourished in NAD HEENT: Atraumatic, normocephalic, pupils reactive, negative for conjunctival pallor or scleral icterus, mucous membranes moist, throat clear, neck supple, nontender, trachea midline. Lungs: Clear to auscultation, breath sounds equal bilaterally, chest nontender. Heart: S1S2, regular, negative for clicks, rubs, or JVD. Abdomen: Soft, nondistended, nontender. Negative for masses or hepatosplenomegaly. Negative for costovertebral tenderness. Pelvis: Stable nontender. Genitourinary: Deferred. Rectal: Deferred. Extremities: Atraumatic, negative for cords or calf pain. Neurovascular unremarkable. Neuro: Awake, alert, oriented. Cranial nerves II through XII unremarkable. Cerebellum unremarkable. Motor and sensory unremarkable throughout. Exam nonfocal. Diagnostics: Therapeutics: [] Impression: []Side effects from Maxalt Plan: []Stop Maxalt follow-up with PMD return if symptoms worsen or change Definitive disposition and diagnosis as appropriate pending reevaluation and review of above. - Related Data Allergies Allergy/AdvReac Type Severity Reaction Status Date / Time hydrocodone Allergy Itching Verified 12/22/17 08:50 Home Meds: Home Meds Acyclovir 400 mg PO DAILY 09/21/17 [History] Albuterol Sulfate [Ventolin Hfa] 1 - 2 puff INH QID PRN 09/21/17 [History] ClonazePAM [KlonoPIN] 0.5 mg PO BID PRN 09/21/17 [History] Desogestrel-Ethinyl Estradiol [Reclipsen 28 Day Tablet] 1 tab PO DAILY 09/21/17 [History] Desvenlafaxine [Desvenlafaxine ER] 100 mg PO DAILY 09/21/17 [History] Lysine [L-Lysine] 1 tab PO DAILY 09/21/17 [History] Montelukast [Singulair] 10 mg PO DAILY 09/21/17 [History] Zolpidem Tartrate [Edluar] 10 mg SL BEDTIME 09/21/17 [History] buPROPion HCl [Wellbutrin Xl] 300 mg PO DAILY 09/21/17 [History] Rizatriptan Benzoate [Rizatriptan] 10 mg PO Q2HR PRN 12/22/17 [History] Past Medical History - Past Health History Medical/Surgical History: Denies Medical/Surgical History HEENT History: Reports: None Cardiovascular History: Reports: None Respiratory History: Reports: Asthma Gastrointestinal History: Reports: None Genitourinary History: Reports: None Other Genitourinary History: genital herpes 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 Musculoskeletal History: Reports: None Neurological History: Reports: Migraines Psychiatric History: Reports: Anxiety, Depression, Schizophrenia, Suicide Attempt, Suicidal Ideation Endocrine/Metabolic History: Reports: None Hematologic History: Reports: None Immunologic History: Reports: None Oncologic (Cancer) History: Reports: None Dermatologic History: Reports: None - Infectious Disease History Infectious Disease History: Reports: Chicken Pox, Other (See Below) Other Infectious Disease History: childhood - Past Surgical History Head Surgeries/Procedures: Reports: None HEENT Surgical History: Reports: None Cardiovascular Surgical History: Reports: None Respiratory Surgical History: Reports: None GI Surgical History: Reports: None Female Surgical History: Reports: None Endocrine Surgical History: Reports: None Neurological Surgical History: Reports: None Musculoskeletal Surgical History: Reports: None Oncologic Surgical History: Reports: None Dermatological Surgical History: Reports: None Social & Family History - Family History Family Medical History: Noncontributory - Tobacco Use Smoking Status *Q: Never Smoker Second Hand Smoke Exposure: No - Caffeine Use Caffeine Use: Reports: Tea - Recreational Drug Use Recreational Drug Use: No - Living Situation & Occupation Living situation: Reports: Single ED ROS GENERAL - Review of Systems Review Of Systems: See Below (See history of present illness) ED EXAM, GENERAL - Physical Exam Exam: See Below (See history of present illness) Course - Vital Signs Last Recorded V/S: Last Vital Signs Temp 97.8 F 12/22/17 08:51 Pulse 59 L 12/22/17 08:51 Resp 20 12/22/17 08:51 BP 126/64 12/22/17 08:51 Pulse Ox 100 12/22/17 08:51 - Orders/Labs/Meds Orders: Active Orders 24 hr Category Date Time Status Ondansetron [Zofran ODT] Med 12/22/17 09:06 Once 4 mg PO ONETIME ONE Departure - Departure Time of Disposition: 09:06 Disposition: Home, Self-Care 01 Condition: Good Clinical Impression: Side effect of medication - Discharge Information Forms: ED Department Discharge Additional Instructions: The following information is given to patients seen in the emergency department who are being discharged to home. This information is to outline your options for follow-up care. We provide all patients seen in our emergency department with a follow-up referral. The need for follow-up, as well as the timing and circumstances, are variable depending upon the specifics of your emergency department visit. If you don't have a primary care physician on staff, we will provide you with a referral. We always advise you to contact your personal physician following an emergency department visit to inform them of the circumstance of the visit and for follow-up with them and/or the need for any referrals to a consulting specialist. The emergency department will also refer you to a specialist when appropriate. This referral assures that you have the opportunity for follow-up care with a specialist. All of these measure are taken in an effort to provide you with optimal care, which includes your follow-up. Under all circumstances we always encourage you to contact your private physician who remains a resource for coordinating your care. When calling for follow-up care, please make the office aware that this follow-up is from your recent emergency room visit. If for any reason you are refused follow-up, please contact the [facility] Emergency Department at and asked to speak to the emergency department charge nurse. Melanie George, follow up with the primary care. MARTINEZ [facility] [address] [place] [id number] - My Orders Last 24 Hours: My Active Orders 12/22/17 09:06 Ondansetron [Zofran ODT] 4 mg PO ONETIME ONE - Assessment/Plan Last 24 Hours: My Active Orders 12/22/17 09:06 Ondansetron [Zofran ODT] 4 mg PO ONETIME ONE
[2017-12-22 10:01] VITALS: BP 121/73
== END 2017-12-22 09:57 | disposition home or self-care (01) ==
LOC: MW.ED 08:47
DX: F41.9 Anxiety disorder, unspecified (principal); R06.02 Shortness of breath; R20.0 Anesthesia of skin; R20.2 Paresthesia of skin; T39.8X5A Adverse effect of other nonopioid analgesics and antipyretics, not elsewhere classified, initial encounter; Z88.5 Allergy status to narcotic agent; Z79.899 Other long term (current) drug therapy; J45.909 Unspecified asthma, uncomplicated
CPT/HCPCS: 99283; A9270

== ENCOUNTER 2018-07-24 09:39 | Emergency (ER) | payer SELFPAY ==
[2018-07-24] MEDS ORDERED: Ketorolac 60 MG/2 ML SDV IM ONE (09:55)
--- NOTE | 2018-07-24 09:55 | EDM.PDOC ---
ED HPI GENERAL MEDICAL PROBLEM - General Chief Complaint: Headache Stated Complaint: MIGRANE Time Seen by Provider: 07/24/18 09:48 - History of Present Illness INITIAL COMMENTS - FREE TEXT/NARRATIVE: HISTORY AND PHYSICAL: History of present illness: Patient is a 23-year-old female with history of migraine headaches or presents with concern of migraine she's had no vomiting no new neurological signs or symptoms she states is typical migraine. She has scheduled follow-up. There's been no vomiting Review of systems: As per history of present illness and below otherwise all systems reviewed and negative. Past medical history: As per history of present illness and as reviewed below otherwise noncontributory. Surgical history: As per history of present illness and as reviewed below otherwise noncontributory. Social history: No reported history of drug or alcohol abuse. Family history: As per history of present illness and as reviewed below otherwise noncontributory. Physical exam: HEENT: Atraumatic, normocephalic, pupils reactive, negative for conjunctival pallor or scleral icterus, mucous membranes moist, throat clear, neck supple, nontender, trachea midline. Lungs: Clear to auscultation, breath sounds equal bilaterally, chest nontender. Heart: S1S2, regular, negative for clicks, rubs, or JVD. Abdomen: Soft, nondistended, nontender. Negative for masses or hepatosplenomegaly. Negative for costovertebral tenderness. Pelvis: Stable nontender. Genitourinary: Deferred. Rectal: Deferred. Extremities: Atraumatic, negative for cords or calf pain. Neurovascular unremarkable. Neuro: Awake, alert, oriented. Cranial nerves II through XII unremarkable. Cerebellum unremarkable. Motor and sensory unremarkable throughout. Exam nonfocal. Diagnostics: None Therapeutics: Toradol 60 mg IM Impression: #1 migraine headache Definitive disposition and diagnosis as appropriate pending reevaluation and review of above. headache Pain Score (Numeric/FACES): 7 - Related Data Allergies Allergy/AdvReac Type Severity Reaction Status Date / Time hydrocodone Allergy Itching Verified 07/24/18 09:50 Home Meds: Home Meds Acyclovir 400 mg PO DAILY 09/21/17 [History] Albuterol Sulfate [Ventolin Hfa] 1 - 2 puff INH QID PRN 09/21/17 [History] ClonazePAM [KlonoPIN] 0.5 mg PO BID PRN 09/21/17 [History] Lysine [L-Lysine] 1,000 mg PO DAILY 09/21/17 [History] Past Medical History - Past Health History Medical/Surgical History: Denies Medical/Surgical History HEENT History: Reports: None Cardiovascular History: Reports: None Respiratory History: Reports: Asthma Gastrointestinal History: Reports: None Genitourinary History: Reports: None Other Genitourinary History: genital herpes 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 Musculoskeletal History: Reports: None Neurological History: Reports: Migraines Psychiatric History: Reports: Anxiety, Depression, Schizophrenia, Suicide Attempt, Suicidal Ideation Endocrine/Metabolic History: Reports: None Hematologic History: Reports: None Immunologic History: Reports: None Oncologic (Cancer) History: Reports: None Dermatologic History: Reports: None - Infectious Disease History Infectious Disease History: Reports: Chicken Pox, Other (See Below) Other Infectious Disease History: childhood - Past Surgical History Head Surgeries/Procedures: Reports: None HEENT Surgical History: Reports: None Cardiovascular Surgical History: Reports: None Respiratory Surgical History: Reports: None GI Surgical History: Reports: None Female Surgical History: Reports: None Endocrine Surgical History: Reports: None Neurological Surgical History: Reports: None Musculoskeletal Surgical History: Reports: None Oncologic Surgical History: Reports: None Dermatological Surgical History: Reports: None Social & Family History - Family History Family Medical History: Noncontributory - Caffeine Use Caffeine Use: Reports: Tea - Living Situation & Occupation Living situation: Reports: Single ED ROS GENERAL - Review of Systems Review Of Systems: ROS reveals no pertinent complaints other than HPI. ED EXAM, GENERAL - Physical Exam Exam: See Below (See dictation) Course - Vital Signs Last Recorded V/S: Last Vital Signs Temp 37.0 C 07/24/18 09:51 Pulse 75 07/24/18 09:51 Resp 18 07/24/18 09:51 BP 131/66 07/24/18 09:51 Pulse Ox 98 07/24/18 09:51 Departure - Departure Time of Disposition: 09:54 Disposition: Home, Self-Care 01 Condition: Good Clinical Impression: Migraine headache - Discharge Information Referrals: PCP,None [Primary Care Provider] - Additional Instructions: The following information is given to patients seen in the emergency department who are being discharged to home. This information is to outline your options for follow-up care. We provide all patients seen in our emergency department with a follow-up referral. The need for follow-up, as well as the timing and circumstances, are variable depending upon the specifics of your emergency department visit. If you don't have a primary care physician on staff, we will provide you with a referral. We always advise you to contact your personal physician following an emergency department visit to inform them of the circumstance of the visit and for follow-up with them and/or the need for any referrals to a consulting specialist. The emergency department will also refer you to a specialist when appropriate. This referral assures that you have the opportunity for followup care with a specialist. All of these measure are taken in an effort to provide you with optimal care, which includes your followup. Under all circumstances we always encourage you to contact your private physician who remains a resource for coordinating your care. When calling for followup care, please make the office aware that this follow-up is from your recent emergency room visit. If for any reason you are refused follow-up, please contact the [facility] emergency department at and asked to speak to the emergency department charge nurse. Keep scheduled follow-up as discussed return as needed as discussed
[2018-07-24 10:30] VITALS: BP 112/76
== END 2018-07-24 10:26 | disposition home or self-care (01) ==
LOC: MW.ED 09:39
DX: G43.909 Migraine, unspecified, not intractable, without status migrainosus (principal); J45.909 Unspecified asthma, uncomplicated; Z88.6 Allergy status to analgesic agent; Z79.899 Other long term (current) drug therapy
CPT/HCPCS: 96372; 99283; J1885; 99282

== ENCOUNTER 2018-09-01 14:14 | Emergency (ER) | payer SELFPAY ==
--- NOTE | 2018-09-01 14:22 | EDM.PDOC ---
ED HPI GENERAL MEDICAL PROBLEM - General Chief Complaint: ENT Problem Stated Complaint: MIGRANE Time Seen by Provider: 09/01/18 14:21 Source of Information: Reports: Patient History Limitations: Reports: No Limitations - History of Present Illness INITIAL COMMENTS - FREE TEXT/NARRATIVE: HISTORY AND PHYSICAL: History of present illness: Patient is a 23-year-old female who presents to the ED today with a migraine. Patient states migraine has been ongoing since Saturday. She states this migraine is per her usual and is not different. She does have a long history of migraines and follows neurology for this. She states that she does have medications but recently ran out and has not been able to get in to see her neurologist. She rates her pain a 6 out of 10. She states the pain is in the front of her face behind her eyes which is normal for her. She describes it as throbbing and better with the lights off. She has taken [id number] ibuprofen without relief of her symptoms. Patient denies the presence of an aura. Patient denies fever, chills, nausea, vomiting, change in vision, blurry vision , focal denies breathing, chest pain, or all other GI, , cardiovascular car struck in terms. Patient does have a long-standing history of migraine disorder and denies any other health history. Review of systems: As per history of present illness and below otherwise all systems reviewed and negative. Past medical history: As per history of present illness and as reviewed below otherwise noncontributory. Surgical history: As per history of present illness and as reviewed below otherwise noncontributory. Social history: See social history for further information Family history: As per history of present illness and as reviewed below otherwise noncontributory. Physical exam: General: Patient is alert, oriented, and in no acute distress. She is lying comfortably on exam table. HEENT: Atraumatic, normocephalic, pupils equal and reactive bilaterally, negative for conjunctival pallor or scleral icterus, mucous membranes moist, TMs normal bilaterally, throat clear, neck supple, nontender, trachea midline. No drooling or trismus noted. No meningeal signs. No hot potato voice noted. Lungs: Clear to auscultation, breath sounds equal bilaterally, chest nontender. Heart: S1S2, regular rate and rhythm without overt murmur Abdomen: Soft, nondistended, nontender. Negative for masses or hepatosplenomegaly. Negative for costovertebral tenderness. Pelvis: Stable nontender. Genitourinary: Deferred. Rectal: Deferred. Skin: Intact, warm, dry. No lesions or rashes noted. Extremities: Atraumatic, negative for cords or calf pain. Neurovascular unremarkable. Neuro: Awake, alert, oriented. Cranial nerves II through XII unremarkable. Cerebellum unremarkable. Motor and sensory unremarkable throughout. Exam nonfocal. Notes: Patient presents with her typical migraine symptoms but states she is out of her rescue medication. She does not have any new or different symptoms than her usual. Will treat accordingly for her migraine. Supportive care measures were reviewed and discussed. Voices understanding and is agreeable to plan of care. Denies any further questions or concerns at this time. Diagnostics: None Therapeutics: Saline, Reglan, Benadryl, Zofran, Toradol Prescription: None Impression: Migraine headache Plan: 1. Continue to use your at-home medications for migraine control as prescribed. 2. Follow-up with your primary care provider or neurologist in the next 1-2 days as discussed. 3. Return to the ED as needed and as discussed. Definitive disposition and diagnosis as appropriate pending reevaluation and review of above. Headache /sinus pressure Pain Score (Numeric/FACES): 8 - Related Data Allergies Allergy/AdvReac Type Severity Reaction Status Date / Time hydrocodone Allergy Itching Verified 09/01/18 14:34 Home Meds: Home Meds Acyclovir 400 mg PO DAILY 09/21/17 [History] Albuterol Sulfate [Ventolin Hfa] 1 - 2 puff INH QID PRN 09/21/17 [History] ClonazePAM [KlonoPIN] 0.5 mg PO BID PRN 09/21/17 [History] Lysine [L-Lysine] 1,000 mg PO DAILY 09/21/17 [History] SUMAtriptan [Imitrex] 07/24/18 [History] Past Medical History - Past Health History Medical/Surgical History: Denies Medical/Surgical History HEENT History: Reports: None Cardiovascular History: Reports: None Respiratory History: Reports: Asthma Gastrointestinal History: Reports: None Genitourinary History: Reports: None Other Genitourinary History: genital herpes 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 Musculoskeletal History: Reports: None Neurological History: Reports: Migraines Psychiatric History: Reports: Anxiety, Depression, Schizophrenia, Suicide Attempt, Suicidal Ideation Endocrine/Metabolic History: Reports: None Hematologic History: Reports: None Immunologic History: Reports: None Oncologic (Cancer) History: Reports: None Dermatologic History: Reports: None - Infectious Disease History Infectious Disease History: Reports: Chicken Pox, Other (See Below) Other Infectious Disease History: childhood - Past Surgical History Head Surgeries/Procedures: Reports: None HEENT Surgical History: Reports: None Cardiovascular Surgical History: Reports: None Respiratory Surgical History: Reports: None GI Surgical History: Reports: None Female Surgical History: Reports: None Endocrine Surgical History: Reports: None Neurological Surgical History: Reports: None Musculoskeletal Surgical History: Reports: None Oncologic Surgical History: Reports: None Dermatological Surgical History: Reports: None Social & Family History - Family History Family Medical History: Noncontributory - Caffeine Use Caffeine Use: Reports: Tea - Living Situation & Occupation Living situation: Reports: Single ED ROS ENT - Review of Systems Review Of Systems: ROS reveals no pertinent complaints other than HPI. ED EXAM, ENT - Physical Exam Exam: See Below (See dictation) Course - Vital Signs Last Recorded V/S: Last Vital Signs Temp 98.0 F 09/01/18 14:39 Pulse 82 09/01/18 14:39 Resp 16 09/01/18 14:39 BP 115/69 09/01/18 14:39 Pulse Ox 97 09/01/18 14:39 - Orders/Labs/Meds Orders: Active Orders 24 hr Category Date Time Status Sodium Chloride 0.9% [Normal Saline] 1,000 ml Med 09/01/18 14:55 Active IV STAT Medication Orders Sodium Chloride (Normal Saline) 1,000 mls @ 999 mls/hr IV STAT ONE Stop: 09/01/18 15:55 Last Admin: 09/01/18 15:00 Dose: 999 mls/hr Meds: Medications Generic Name Dose Route Start Last Admin Trade Name Freq PRN Reason Stop Dose Admin Sodium Chloride 1,000 mls @ 999 mls/hr 09/01/18 14:55 09/01/18 15:00 Normal Saline IV 09/01/18 15:55 999 mls/hr STAT ONE Administration Discontinued Medications Generic Name Dose Route Start Last Admin Trade Name Freq PRN Reason Stop Dose Admin Diphenhydramine HCl 50 mg 09/01/18 14:51 09/01/18 15:00 Benadryl IVPUSH 09/01/18 14:52 50 mg ONETIME ONE Administration Ketorolac Tromethamine 30 mg 09/01/18 14:51 09/01/18 15:00 Toradol IVPUSH 09/01/18 14:52 30 mg ONETIME ONE Administration Metoclopramide HCl 10 mg 09/01/18 14:51 09/01/18 15:01 Reglan IVPUSH 09/01/18 14:52 10 mg ONETIME ONE Administration Ondansetron HCl 4 mg 09/01/18 14:51 09/01/18 15:01 Zofran IVPUSH 09/01/18 14:52 4 mg ONETIME ONE Administration Departure - Departure Time of Disposition: 15:05 Disposition: Home, Self-Care 01 Clinical Impression: Migraine Qualifiers: Migraine type: unspecified Status migrainosus presence: without status migrainosus Intractability: intractable Qualified Code(s): G43.919 - Migraine, unspecified, intractable, without status migrainosus - Discharge Information Instructions: Migraine Headache, [id number] Referrals: Charele Jeffery MD [Primary Care Provider] - Forms: ED Department Discharge Additional Instructions: The following information is given to patients seen in the emergency department who are being discharged to home. This information is to outline your options for follow-up care. We provide all patients seen in our emergency department with a follow-up referral. The need for follow-up, as well as the timing and circumstances, are variable depending upon the specifics of your emergency department visit. If you don't have a primary care physician on staff, we will provide you with a referral. We always advise you to contact your personal physician following an emergency department visit to inform them of the circumstance of the visit and for follow-up with them and/or the need for any referrals to a consulting specialist. The emergency department will also refer you to a specialist when appropriate. This referral assures that you have the opportunity for follow-up care with a specialist. All of these measure are taken in an effort to provide you with optimal care, which includes your follow-up. Under all circumstances we always encourage you to contact your private physician who remains a resource for coordinating your care. When calling for follow-up care, please make the office aware that this follow-up is from your recent emergency room visit. If for any reason you are refused follow-up, please contact the [facility] Emergency Department at and asked to speak to the emergency department charge nurse. [facility] [address], [place] [address] [id number] 1. Continue to use your at-home medications for migraine control as prescribed. 2. Follow-up with your primary care provider or neurologist in the next 1-2 days as discussed. 3. Return to the ED as needed and as discussed. - My Orders Last 24 Hours: My Active Orders 09/01/18 14:55 Sodium Chloride 0.9% [Normal Saline] 1,000 ml IV STAT - Assessment/Plan Last 24 Hours: My Active Orders 09/01/18 14:55 Sodium Chloride 0.9% [Normal Saline] 1,000 ml IV STAT
[2018-09-01] MEDS ORDERED: Ketorolac 30 MG/ML SDV IVPUSH ONE (14:51)
[2018-09-01] MEDS ORDERED: diphenhydrAMINE 50 MG/ML SDV IVPUSH ONE (14:51)
[2018-09-01] MEDS ORDERED: Ondansetron 4 MG/2 ML SDV IVPUSH ONE (14:51)
[2018-09-01] MEDS ORDERED: Metoclopramide 10 MG/2 ML SDV IVPUSH ONE (14:51)
[2018-09-01] MEDS ORDERED: Sodium Chloride 0.9% 1,000 ML IV ONE (14:55)
[2018-09-01 15:55] VITALS: BP 129/76
== END 2018-09-01 15:55 | disposition home or self-care (01) ==
LOC: MW.ED 14:14
DX: G43.919 Migraine, unspecified, intractable, without status migrainosus (principal); J45.909 Unspecified asthma, uncomplicated; F41.9 Anxiety disorder, unspecified; F32.9 Major depressive disorder, single episode, unspecified; Z79.899 Other long term (current) drug therapy; Z88.5 Allergy status to narcotic agent; Z79.82 Long term (current) use of aspirin
CPT/HCPCS: 96361; 96374; 96375; 99283; J1200; J1885; J2405; J2765; J7040

== ENCOUNTER 2018-09-11 20:25 | Emergency (ER) | payer SELFPAY ==
--- NOTE | 2018-09-11 20:49 | EDM.PDOC ---
ED HPI GENERAL MEDICAL PROBLEM - General Chief Complaint: Respiratory Problem Stated Complaint: dry cough Time Seen by Provider: 09/11/18 20:41 Source of Information: Reports: Patient History Limitations: Reports: No Limitations - History of Present Illness INITIAL COMMENTS - FREE TEXT/NARRATIVE: HISTORY AND PHYSICAL: History of present illness: Patient is a 23-year-old female here with complaint of dry cough x 5 days. She states she was at a [employer] party 6 days ago where she was exposed to second-hand smoke. She states she has history of asthma and thinks this may have triggered it. She is using her inhaler and using OTC cough medications not having any relief with the cough. She states she is coughing so hard she is vomiting and can hardly keep anything down. She denies any fevers, chills, diarrhea, abdominal pain, urinary or bowel symptoms. Review of systems: As per history of present illness and below otherwise all systems reviewed and negative. Past medical history: As per history of present illness and as reviewed below otherwise noncontributory. Surgical history: As per history of present illness and as reviewed below otherwise noncontributory. Social history: No reported history of drug or alcohol abuse. Family history: As per history of present illness and as reviewed below otherwise noncontributory. Physical exam: General: Patient sitting comfortably in no acute distress and nontoxic appearing HEENT: Atraumatic, normocephalic, pupils reactive, negative for conjunctival pallor or scleral icterus, mucous membranes moist, throat clear, neck supple, nontender, trachea midline. No meningeal signs. Lungs: Clear to auscultation, breath sounds equal bilaterally, chest nontender. Heart: S1S2, regular, negative for clicks, rubs, or overt murmur. Abdomen: Soft, nondistended, nontender. Negative for masses or hepatosplenomegaly. Negative for costovertebral tenderness. No rigidity, rebound , guarding. Pelvis: Stable nontender. Genitourinary: Deferred. Rectal: Deferred. Extremities: Atraumatic, negative for cords or calf pain. Neurovascular unremarkable. Neuro: Awake, alert, oriented. Cranial nerves II through XII unremarkable. Cerebellum unremarkable. Motor and sensory unremarkable throughout. Exam nonfocal. Notes: Diagnostics: CXR, influenza Therapeutics: None Prescriptions: Medrol michael martinez Impression: Viral URI, asthma Plan: 1. Take medications as instructed. Continue rescue inhaler every 4-6 hours as needed. 2. Follow up with primary care provider 3. Return to ED as needed as discussed Definitive disposition and diagnosis as appropriate pending reevaluation and review of above. - Related Data Allergies Allergy/AdvReac Type Severity Reaction Status Date / Time hydrocodone Allergy Hives Verified 09/11/18 20:37 Home Meds: Home Meds Acyclovir 400 mg PO DAILY 09/21/17 [History] Albuterol Sulfate [Ventolin Hfa] 1 - 2 puff INH QID PRN 09/21/17 [History] ClonazePAM [KlonoPIN] 0.5 mg PO BID PRN 09/21/17 [History] Lysine [L-Lysine] 1,000 mg PO DAILY 09/21/17 [History] SUMAtriptan [Imitrex] 07/24/18 [History] Past Medical History - Past Health History Medical/Surgical History: Denies Medical/Surgical History HEENT History: Reports: None Cardiovascular History: Reports: None Respiratory History: Reports: Asthma Gastrointestinal History: Reports: None Genitourinary History: Reports: None Other Genitourinary History: genital herpes [employer] History: Reports: None Musculoskeletal History: Reports: None Neurological History: Reports: Migraines Psychiatric History: Reports: Anxiety, Depression, Schizophrenia, Suicide Attempt, Suicidal Ideation Endocrine/Metabolic History: Reports: None Hematologic History: Reports: None Immunologic History: Reports: None Oncologic (Cancer) History: Reports: None Dermatologic History: Reports: None - Infectious Disease History Infectious Disease History: Reports: Chicken Pox, Other (See Below) Other Infectious Disease History: childhood - Past Surgical History Head Surgeries/Procedures: Reports: None HEENT Surgical History: Reports: None Cardiovascular Surgical History: Reports: None Respiratory Surgical History: Reports: None GI Surgical History: Reports: None Female Surgical History: Reports: None Endocrine Surgical History: Reports: None Neurological Surgical History: Reports: None Musculoskeletal Surgical History: Reports: None Oncologic Surgical History: Reports: None Dermatological Surgical History: Reports: None Social & Family History - Family History Family Medical History: Noncontributory - Tobacco Use Smoking Status *Q: Never Smoker Second Hand Smoke Exposure: Yes - Caffeine Use Caffeine Use: Reports: Tea - Recreational Drug Use Recreational Drug Use: No - Living Situation & Occupation Living situation: Reports: Single ED ROS GENERAL - Review of Systems Review Of Systems: ROS reveals no pertinent complaints other than HPI. ED EXAM, GENERAL - Physical Exam Exam: See Below (see dictation) Course - Vital Signs Last Recorded V/S: Last Vital Signs Temp 97.8 F 09/11/18 20:36 Pulse 107 H 09/11/18 20:36 Resp 18 09/11/18 20:36 BP 115/62 09/11/18 20:36 Pulse Ox 96 09/11/18 20:36 - Orders/Labs/Meds Orders: Active Orders 24 hr Category Date Time Status Chest 2V [CR] Stat Exams 09/11/18 20:45 Taken Labs: Laboratory Tests 09/11/18 Range/Units 20:56 Urine HCG, Qual NEGATIVE (NEGATIVE) Departure - Departure Time of Disposition: 21:44 Disposition: Home, Self-Care 01 Condition: Good Clinical Impression: Viral URI, Asthma - Discharge Information Referrals: PCP,None [Primary Care Provider] - Forms: ED Department Discharge Additional Instructions: The following information is given to patients seen in the emergency department who are being discharged to home. This information is to outline your options for follow-up care. We provide all patients seen in our emergency department with a follow-up referral. The need for follow-up, as well as the timing and circumstances, are variable depending upon the specifics of your emergency department visit. If you don't have a primary care physician on staff, we will provide you with a referral. We always advise you to contact your personal physician following an emergency department visit to inform them of the circumstance of the visit and for follow-up with them and/or the need for any referrals to a consulting specialist. The emergency department will also refer you to a specialist when appropriate. This referral assures that you have the opportunity for follow-up care with a specialist. All of these measure are taken in an effort to provide you with optimal care, which includes your follow-up. Under all circumstances we always encourage you to contact your private physician who remains a resource for coordinating your care. When calling for follow-up care, please make the office aware that this follow-up is from your recent emergency room visit. If for any reason you are refused follow-up, please contact the [facility] Emergency Department at and asked to speak to the emergency department charge nurse. [facility] [address] [place] [id number] 1. Take medications as instructed. Continue rescue inhaler every 4-6 hours as needed. 2. Follow up with primary care provider 3. Return to ED as needed as discussed - My Orders Last 24 Hours: My Active Orders 09/11/18 20:45 Chest 2V [CR] Stat - Assessment/Plan Last 24 Hours: My Active Orders 09/11/18 20:45 Chest 2V [CR] Stat
--- NOTE | 2018-09-11 21:45 | CR ---
INDICATION: Cough for 5 days. TECHNIQUE: Two view chest. FINDINGS: The lungs are clear. The heart, mediastinum and pulmonary vessels are of normal size. There is no evidence of pleural disease. Nipple jewelry. IMPRESSION: Negative chest. Dictated by Eligio Fox MD @ Sep 11 2018 9:43PM Signed by Dr. Eligio Fox @ Sep 11 2018 9:43PM
[2018-09-11 22:11] VITALS: BP 102/65
== END 2018-09-11 21:59 | disposition home or self-care (01) ==
LOC: MW.ED 20:25
DX: J06.9 Acute upper respiratory infection, unspecified (principal); J45.909 Unspecified asthma, uncomplicated; Z88.6 Allergy status to analgesic agent; Z79.899 Other long term (current) drug therapy; F41.9 Anxiety disorder, unspecified; F32.9 Major depressive disorder, single episode, unspecified; Z77.22 Contact with and (suspected) exposure to environmental tobacco smoke (acute) (chronic)
CPT/HCPCS: 71046; 71046-26; 81025; 87804; 99283-25

== ENCOUNTER 2018-09-27 03:28 | Emergency (ER) | payer OTHER ==
[2018-09-27 03:36] VITALS: BP 115/90
--- NOTE | 2018-09-27 03:51 | EDM.PDOC ---
ED HPI GENERAL MEDICAL PROBLEM - General Chief Complaint: Respiratory Problem Stated Complaint: MEDICAL CLEARANCE Time Seen by Provider: 09/27/18 03:49 - History of Present Illness INITIAL COMMENTS - FREE TEXT/NARRATIVE: HISTORY AND PHYSICAL: History of present illness: Patient's 23-year-old white female in custody of law enforcement presents for medical clearance Review of systems: As per history of present illness and below otherwise all systems reviewed and negative. Past medical history: As per history of present illness and as reviewed below otherwise noncontributory. Surgical history: As per history of present illness and as reviewed below otherwise noncontributory. Social history: No reported history of drug or alcohol abuse. Family history: As per history of present illness and as reviewed below otherwise noncontributory. Physical exam: HEENT: Atraumatic, normocephalic, pupils reactive, negative for conjunctival pallor or scleral icterus, mucous membranes moist, throat clear, neck supple, nontender, trachea midline. Lungs: Clear to auscultation, breath sounds equal bilaterally, chest nontender. Heart: S1S2, regular, negative for clicks, rubs, or JVD. Abdomen: Soft, nondistended, nontender. Negative for masses or hepatosplenomegaly. Negative for costovertebral tenderness. Pelvis: Stable nontender. Genitourinary: Deferred. Rectal: Deferred. Extremities: Atraumatic, negative for cords or calf pain. Neurovascular unremarkable. Neuro: Awake, alert, oriented. Cranial nerves II through XII unremarkable. Cerebellum unremarkable. Motor and sensory unremarkable throughout. Exam nonfocal. Diagnostics: None Therapeutics: None Impression: #1 medically clear for incarceration Definitive disposition and diagnosis as appropriate pending reevaluation and review of above. Chest Pain Score (Numeric/FACES): 7 - Related Data Allergies Allergy/AdvReac Type Severity Reaction Status Date / Time hydrocodone Allergy Hives Verified 09/27/18 03:31 Home Meds: Home Meds Acyclovir 400 mg PO DAILY 09/21/17 [History] Albuterol Sulfate [Ventolin Hfa] 1 - 2 puff INH QID PRN 09/21/17 [History] ClonazePAM [KlonoPIN] 0.5 mg PO BID PRN 09/21/17 [History] Lysine [L-Lysine] 1,000 mg PO DAILY 09/21/17 [History] SUMAtriptan [Imitrex] 07/24/18 [History] Past Medical History - Past Health History Medical/Surgical History: Denies Medical/Surgical History HEENT History: Reports: None Cardiovascular History: Reports: None Respiratory History: Reports: Asthma Gastrointestinal History: Reports: None Genitourinary History: Reports: None Other Genitourinary History: genital herpes 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 Musculoskeletal History: Reports: None Neurological History: Reports: Migraines Psychiatric History: Reports: Anxiety, Depression, Schizophrenia, Suicide Attempt, Suicidal Ideation Endocrine/Metabolic History: Reports: None Hematologic History: Reports: None Immunologic History: Reports: None Oncologic (Cancer) History: Reports: None Dermatologic History: Reports: None - Infectious Disease History Infectious Disease History: Reports: Chicken Pox, Other (See Below) Other Infectious Disease History: childhood - Past Surgical History Head Surgeries/Procedures: Reports: None HEENT Surgical History: Reports: None Cardiovascular Surgical History: Reports: None Respiratory Surgical History: Reports: None GI Surgical History: Reports: None Female Surgical History: Reports: None Endocrine Surgical History: Reports: None Neurological Surgical History: Reports: None Musculoskeletal Surgical History: Reports: None Oncologic Surgical History: Reports: None Dermatological Surgical History: Reports: None Social & Family History - Family History Family Medical History: Noncontributory - Tobacco Use Smoking Status *Q: Never Smoker - Caffeine Use Caffeine Use: Reports: None - Recreational Drug Use Recreational Drug Use: No - Living Situation & Occupation Living situation: Reports: Single ED ROS GENERAL - Review of Systems Review Of Systems: ROS reveals no pertinent complaints other than HPI. ED EXAM, GENERAL - Physical Exam Exam: See Below (See dictation) Course - Vital Signs Last Recorded V/S: Last Vital Signs Temp 36.7 C 09/27/18 03:32 Pulse 121 H 09/27/18 03:32 Resp 18 09/27/18 03:32 BP 115/90 09/27/18 03:32 Pulse Ox 100 09/27/18 03:32 Departure - Departure Time of Disposition: 03:50 Disposition: Home, Self-Care 01 Condition: Good Clinical Impression: Medical clearance for incarceration - Discharge Information Referrals: PCP,None [Primary Care Provider] - Additional Instructions: The following information is given to patients seen in the emergency department who are being discharged to home. This information is to outline your options for follow-up care. We provide all patients seen in our emergency department with a follow-up referral. The need for follow-up, as well as the timing and circumstances, are variable depending upon the specifics of your emergency department visit. If you don't have a primary care physician on staff, we will provide you with a referral. We always advise you to contact your personal physician following an emergency department visit to inform them of the circumstance of the visit and for follow-up with them and/or the need for any referrals to a consulting specialist. The emergency department will also refer you to a specialist when appropriate. This referral assures that you have the opportunity for followup care with a specialist. All of these measure are taken in an effort to provide you with optimal care, which includes your followup. Under all circumstances we always encourage you to contact your private physician who remains a resource for coordinating your care. When calling for followup care, please make the office aware that this follow-up is from your recent emergency room visit. If for any reason you are refused follow-up, please contact the [facility] emergency department at and asked to speak to the emergency department charge nurse. Follow-up primary medical doctor as needed as discussed return as needed as discussed
== END 2018-09-27 04:00 | disposition home or self-care (01) ==
LOC: MW.ED 03:28
DX: Z02.89 Encounter for other administrative examinations (principal); Z88.6 Allergy status to analgesic agent; Z79.899 Other long term (current) drug therapy
CPT/HCPCS: 99283

== ENCOUNTER 2018-10-11 18:17 | Emergency (ER) | payer OTHER ==
[2018-10-11] MEDS ORDERED: diphenhydrAMINE 50 MG/ML SDV IM ONE (19:04)
--- NOTE | 2018-10-11 19:09 | EDM.PDOC ---
ED HPI GENERAL MEDICAL PROBLEM - General Chief Complaint: Allergic Reaction Stated Complaint: PT HAS RASH ON BODY Time Seen by Provider: 10/11/18 18:59 - History of Present Illness INITIAL COMMENTS - FREE TEXT/NARRATIVE: HISTORY AND PHYSICAL: History of present illness: The patient is a healthy 23-year-old female who was in her usual state of good health when she went to a buffet to eat dinner tonight and as she was eating the food there she started having an itchy-like sensation and then started having a rash on the anterior upper chest her arms having a stomach pain, mouth and she was concerned she was reacting to something she ate. She took no medications prior to coming here and she says the rash is already improving. She has no known histories of any allergies she's had no vomiting diarrhea fevers chills chest pain or shortness of breath. She says that she did not feel nauseated when this started but she was having some sharp pains diffusely in her abdomen which have been improving Review of systems: As per history of present illness and below otherwise all systems reviewed and negative. Past medical history: As per history of present illness and as reviewed below otherwise noncontributory. Surgical history: As per history of present illness and as reviewed below otherwise noncontributory. Social history: No reported history of drug or alcohol abuse. Family history: As per history of present illness and as reviewed below otherwise noncontributory. Physical exam: General: Well-developed well-nourished female who is nontoxic and vital signs were noted by me. There is no evidence of any facial swelling and she is speaking clearly and easily in the ED HEENT: Atraumatic, normocephalic, negative for conjunctival pallor or scleral icterus, mucous membranes moist, throat clear, neck supple, nontender, trachea midline. There is no lip or oral pharyngeal erythema or swelling Lungs: Clear to auscultation, breath sounds equal bilaterally, chest nontender. No wheezing or stridor or work of breathing Heart: S1S2, regular rate and rhythm no overt murmurs Abdomen: Soft, nondistended, nontender. NABS there is some tympany on percussion and bowel sounds are normoactive. I cannot elicit the pain is typically on examination Pelvis: Stable nontender. Genitourinary: Deferred. Rectal: Deferred. Extremities: Atraumatic, negative for cords or calf pain. Neurovascular unremarkable. Neuro: Awake, alert, oriented. Cranial nerves II through XII unremarkable. Cerebellum unremarkable. Motor and sensory unremarkable throughout. Exam nonfocal. Skin: There is some ill-defined pinkish erythema on the anterior upper chest wall area but there is no urticarial rash seen or any other rash seen on the body. The patient says it has improved since she arrived here Diagnostics: [] Therapeutics: Benadryl IM Impression: Allergic reaction Definitive disposition and diagnosis as appropriate pending reevaluation and review of above. Abdomen Pain Score (Numeric/FACES): 8 - Related Data Allergies Allergy/AdvReac Type Severity Reaction Status Date / Time hydrocodone Allergy Hives Verified 10/11/18 18:29 Home Meds: Home Meds Acyclovir 400 mg PO BID 09/21/17 [History] Albuterol Sulfate [Ventolin Hfa] 1 - 2 puff INH QID PRN 09/21/17 [History] ClonazePAM [KlonoPIN] 0.5 mg PO BID PRN 09/21/17 [History] Lysine [L-Lysine] 1,000 mg PO DAILY 09/21/17 [History] Past Medical History - Past Health History Medical/Surgical History: Denies Medical/Surgical History HEENT History: Reports: None Cardiovascular History: Reports: None Respiratory History: Reports: Asthma Gastrointestinal History: Reports: None Genitourinary History: Reports: None Other Genitourinary History: genital herpes [employer]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 Musculoskeletal History: Reports: None Neurological History: Reports: Migraines Psychiatric History: Reports: Anxiety, Depression, Schizophrenia, Suicide Attempt, Suicidal Ideation Endocrine/Metabolic History: Reports: None Hematologic History: Reports: None Immunologic History: Reports: None Oncologic (Cancer) History: Reports: None Dermatologic History: Reports: None - Infectious Disease History Infectious Disease History: Reports: Herpes Other Infectious Disease History: childhood - Past Surgical History Head Surgeries/Procedures: Reports: None HEENT Surgical History: Reports: None Cardiovascular Surgical History: Reports: None Respiratory Surgical History: Reports: None GI Surgical History: Reports: None Female Surgical History: Reports: None Endocrine Surgical History: Reports: None Neurological Surgical History: Reports: None Musculoskeletal Surgical History: Reports: None Oncologic Surgical History: Reports: None Dermatological Surgical History: Reports: None Social & Family History - Family History Family Medical History: Noncontributory - Tobacco Use Smoking Status *Q: Current Every Day Smoker Years of Tobacco use: 1 Packs/Tins Daily: 0.1 - Caffeine Use Caffeine Use: Reports: None - Recreational Drug Use Recreational Drug Use: No - Living Situation & Occupation Living situation: Reports: Single ED ROS ALLERGIC REACTION - Review of Systems Review Of Systems: ROS reveals no pertinent complaints other than HPI. ED EXAM GENERAL NO PERIP PULSE - Physical Exam Exam: See Below (See dictation) Course - Vital Signs Last Recorded V/S: Last Vital Signs Temp 37.1 C 10/11/18 18:27 Pulse 84 10/11/18 18:27 Resp 18 10/11/18 18:27 BP 131/90 10/11/18 18:27 Pulse Ox 99 10/11/18 18:27 - Orders/Labs/Meds Orders: Active Orders 24 hr Category Date Time Status diphenhydrAMINE [Benadryl] Med 10/11/18 19:04 Once 50 mg IM ONETIME ONE Departure - Departure Time of Disposition: 19:07 Disposition: Home, Self-Care 01 Condition: Good Clinical Impression: Allergic reaction Qualifiers: Encounter type: initial encounter Qualified Code(s): T78.40XA - Allergy, unspecified, initial encounter - Discharge Information Referrals: PCP,None [Primary Care Provider] - Additional Instructions: The following information is given to patients seen in the emergency department who are being discharged to home. This information is to outline your options for follow-up care. We provide all patients seen in our emergency department with a follow-up referral. The need for follow-up, as well as the timing and circumstances, are variable depending upon the specifics of your emergency department visit. If you don't have a primary care physician on staff, we will provide you with a referral. We always advise you to contact your personal physician following an emergency department visit to inform them of the circumstance of the visit and for follow-up with them and/or the need for any referrals to a consulting specialist. The emergency department will also refer you to a specialist when appropriate. This referral assures that you have the opportunity for followup care with a specialist. All of these measure are taken in an effort to provide you with optimal care, which includes your followup. Under all circumstances we always encourage you to contact your private physician who remains a resource for coordinating your care. When calling for followup care, please make the office aware that this follow-up is from your recent emergency room visit. If for any reason you are refused follow-up, please contact the [facility] emergency department at and ask to speak to the emergency department charge nurse. [facility] Primary care- Internal Medicine and Family [address] [id number] Please take Benadryl 50 mg every 6 hours for the next 24 hours and then every 6 hours as needed. These remember that Benadryl can make you drowsy so take this at home and do not drive a car or operate machinery. Expect the rash to come and go and try to eat a clear liquid diet today being gentle on her stomach. Please call and follow-up with your provider in the clinic and try to explore what may have caused this reaction. Return to ER as needed - My Orders Last 24 Hours: My Active Orders 10/11/18 19:04 diphenhydrAMINE [Benadryl] 50 mg IM ONETIME ONE - Assessment/Plan Last 24 Hours: My Active Orders 10/11/18 19:04 diphenhydrAMINE [Benadryl] 50 mg IM ONETIME ONE
[2018-10-11 19:35] VITALS: BP 112/79
== END 2018-10-11 19:35 | disposition home or self-care (01) ==
LOC: MW.ED 18:17
DX: T78.1XXA Other adverse food reactions, not elsewhere classified, initial encounter (principal); R21 Rash and other nonspecific skin eruption; Z88.6 Allergy status to analgesic agent; F17.210 Nicotine dependence, cigarettes, uncomplicated
CPT/HCPCS: 96372; 99283; J1200

== ENCOUNTER 2019-03-29 13:15 | Emergency (ER) | payer MEDICAID ==
--- NOTE | 2019-03-29 13:31 | EDM.PDOC ---
ED HPI GENERAL MEDICAL PROBLEM - General Chief Complaint: Headache Stated Complaint: MIGRAINE Time Seen by Provider: 03/29/19 13:31 Source of Information: Reports: Patient History Limitations: Reports: No Limitations - History of Present Illness INITIAL COMMENTS - FREE TEXT/NARRATIVE: HISTORY AND PHYSICAL: History of present illness: Patient is a 24-year-old female presents to the ED with complaint of headache. She reports a history of migraines diagnosed by Dr. Jeffery. She has tried multiple prescription abortive and preventative medications without success. She states she's had the headache for 4 days, reports light sensitivity and vomiting. She states pain is behind both eyes and back of her head. She head injury, fevers, chills. States this headache is not new or different than her usual. Review of systems: As per history of present illness and below otherwise all systems reviewed and negative. Past medical history: As per history of present illness and as reviewed below otherwise noncontributory. Surgical history: As per history of present illness and as reviewed below otherwise noncontributory. Social history: No reported history of drug or alcohol abuse. Family history: As per history of present illness and as reviewed below otherwise noncontributory. Physical exam: General: Patient sitting comfortably in no acute distress and nontoxic appearing HEENT: Atraumatic, normocephalic, pupils reactive, negative for conjunctival pallor or scleral icterus, mucous membranes moist, throat clear, neck supple, nontender, trachea midline. No meningeal signs. Lungs: Clear to auscultation, breath sounds equal bilaterally, chest nontender. Heart: S1S2, regular, negative for clicks, rubs, or overt murmur. Abdomen: Soft, nondistended, nontender. Negative for masses or hepatosplenomegaly. Negative for costovertebral tenderness. No rigidity, rebound , guarding. Pelvis: Stable nontender. Genitourinary: Deferred. Rectal: Deferred. Extremities: Atraumatic, negative for cords or calf pain. Neurovascular unremarkable. Neuro: Awake, alert, oriented. Cranial nerves II through XII unremarkable. Cerebellum unremarkable. Motor and sensory unremarkable throughout. Exam nonfocal. Notes: Diagnostics: none Therapeutics: 1L NS IV 30mg Toradol IV 4mg Zofran IV 10mg Reglan IV 25mg Benadryl IV Prescriptions: Impression: Cephalgia Plan: Rest and drink plenty of fluids Follow up with primary care provider Return to ED as needed as discussed Definitive disposition and diagnosis as appropriate pending reevaluation and review of above. headache Pain Score (Numeric/FACES): 10 - Related Data Allergies Allergy/AdvReac Type Severity Reaction Status Date / Time hydrocodone Allergy Hives Verified 10/11/18 18:29 morphine Allergy Hives Verified 03/29/19 13:33 oxycodone Allergy Hives Verified 03/29/19 13:33 Home Meds: Home Meds Acyclovir 400 mg PO BID 09/21/17 [History] Albuterol Sulfate [Ventolin Hfa] 1 - 2 puff INH QID PRN 09/21/17 [History] ClonazePAM [KlonoPIN] 0.5 mg PO BID PRN 09/21/17 [History] Lysine [L-Lysine] 1,000 mg PO DAILY 09/21/17 [History] Past Medical History - Past Health History Medical/Surgical History: Denies Medical/Surgical History HEENT History: Reports: None Cardiovascular History: Reports: None Respiratory History: Reports: Asthma Gastrointestinal History: Reports: None Genitourinary History: Reports: None Other Genitourinary History: genital herpes [employer]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 Musculoskeletal History: Reports: None Neurological History: Reports: Migraines Psychiatric History: Reports: Anxiety, Depression, Schizophrenia, Suicide Attempt, Suicidal Ideation Endocrine/Metabolic History: Reports: None Hematologic History: Reports: None Immunologic History: Reports: None Oncologic (Cancer) History: Reports: None Dermatologic History: Reports: None - Infectious Disease History Infectious Disease History: Reports: Herpes Other Infectious Disease History: childhood - Past Surgical History Head Surgeries/Procedures: Reports: None HEENT Surgical History: Reports: None Cardiovascular Surgical History: Reports: None Respiratory Surgical History: Reports: None GI Surgical History: Reports: None Female Surgical History: Reports: None Endocrine Surgical History: Reports: None Neurological Surgical History: Reports: None Musculoskeletal Surgical History: Reports: None Oncologic Surgical History: Reports: None Dermatological Surgical History: Reports: None Social & Family History - Family History Family Medical History: Noncontributory - Caffeine Use Caffeine Use: Reports: None - Living Situation & Occupation Living situation: Reports: Single ED ROS GENERAL - Review of Systems Review Of Systems: ROS reveals no pertinent complaints other than HPI. - Physical Exam Exam: See Below (see dictation) Course - Vital Signs Last Recorded V/S: Last Vital Signs Temp 97.5 F 03/29/19 13:33 Pulse 105 H 03/29/19 13:33 Resp 16 03/29/19 13:33 BP 152/72 H 03/29/19 13:33 Pulse Ox 97 03/29/19 13:33 - Orders/Labs/Meds Orders: Active Orders 24 hr Category Date Time Status Sodium Chloride 0.9% [Normal Saline] 1,000 ml Med 03/29/19 13:34 Active IV STAT Sodium Chloride 0.9% [Saline Flush] Med 03/29/19 13:34 Active 10 ml FLUSH ASDIRECTED PRN Sodium Chloride 0.9% [Saline Flush] Med 03/29/19 13:34 Active 10 ml FLUSH ASDIRECTED PRN Sodium Chloride 0.9% [Saline Flush] Med 03/29/19 13:34 Active 2.5 ml FLUSH ASDIRECTED PRN Sodium Chloride 0.9% [Saline Flush] Med 03/29/19 13:34 Active 2.5 ml FLUSH ASDIRECTED PRN Saline Lock Insert [OM.PC] Stat Oth 03/29/19 13:34 Ordered Medication Orders Sodium Chloride (Normal Saline) 1,000 mls @ 999 mls/hr IV STAT ONE Stop: 03/29/19 14:34 Last Admin: 03/29/19 13:54 Dose: 999 mls/hr Sodium Chloride (Saline Flush) 10 ml FLUSH ASDIRECTED PRN PRN Reason: Keep Vein Open Last Admin: 03/29/19 13:54 Dose: 10 ml Sodium Chloride (Saline Flush) 2.5 ml FLUSH ASDIRECTED PRN PRN Reason: Keep Vein Open Last Admin: 03/29/19 13:54 Dose: 2.5 ml Sodium Chloride (Saline Flush) 10 ml FLUSH ASDIRECTED PRN PRN Reason: Keep Vein Open Last Admin: 03/29/19 13:54 Dose: 10 ml Sodium Chloride (Saline Flush) 2.5 ml FLUSH ASDIRECTED PRN PRN Reason: Keep Vein Open Last Admin: 03/29/19 13:54 Dose: 2.5 ml Meds: Medications Generic Name Dose Route Start Last Admin Trade Name Freq PRN Reason Stop Dose Admin Sodium Chloride 1,000 mls @ 999 mls/hr 03/29/19 13:34 03/29/19 13:54 Normal Saline IV 03/29/19 14:34 999 mls/hr STAT ONE Administration Sodium Chloride 10 ml 03/29/19 13:34 03/29/19 13:54 Saline Flush FLUSH 10 ml ASDIRECTED PRN Administration Keep Vein Open Sodium Chloride 2.5 ml 03/29/19 13:34 03/29/19 13:54 Saline Flush FLUSH 2.5 ml ASDIRECTED PRN Administration Keep Vein Open Sodium Chloride 10 ml 03/29/19 13:34 03/29/19 13:54 Saline Flush FLUSH 10 ml ASDIRECTED PRN Administration Keep Vein Open Sodium Chloride 2.5 ml 03/29/19 13:34 03/29/19 13:54 Saline Flush FLUSH 2.5 ml ASDIRECTED PRN Administration Keep Vein Open Discontinued Medications Generic Name Dose Route Start Last Admin Trade Name Freq PRN Reason Stop Dose Admin Diphenhydramine HCl 25 mg 03/29/19 13:34 03/29/19 13:54 Benadryl IVPUSH 03/29/19 13:35 25 mg ONETIME ONE Administration Ketorolac Tromethamine 30 mg 03/29/19 13:34 03/29/19 13:54 Toradol IVPUSH 03/29/19 13:35 30 mg ONETIME ONE Administration Metoclopramide HCl 10 mg 03/29/19 13:34 03/29/19 13:54 Reglan IVPUSH 03/29/19 13:35 10 mg ONETIME ONE Administration Ondansetron HCl 4 mg 03/29/19 13:34 03/29/19 13:54 Zofran IVPUSH 03/29/19 13:35 4 mg ONETIME ONE Administration Departure - Departure Time of Disposition: 14:10 Disposition: Home, Self-Care 01 Condition: Good Clinical Impression: Cephalalgia - Discharge Information Referrals: Charlee Jeffery MD [Primary Care Provider] - Forms: ED Department Discharge Additional Instructions: The following information is given to patients seen in the emergency department who are being discharged to home. This information is to outline your options for follow-up care. We provide all patients seen in our emergency department with a follow-up referral. The need for follow-up, as well as the timing and circumstances, are variable depending upon the specifics of your emergency department visit. If you don't have a primary care physician on staff, we will provide you with a referral. We always advise you to contact your personal physician following an emergency department visit to inform them of the circumstance of the visit and for follow-up with them and/or the need for any referrals to a consulting specialist. The emergency department will also refer you to a specialist when appropriate. This referral assures that you have the opportunity for follow-up care with a specialist. All of these measure are taken in an effort to provide you with optimal care, which includes your follow-up. Under all circumstances we always encourage you to contact your private physician who remains a resource for coordinating your care. When calling for follow-up care, please make the office aware that this follow-up is from your recent emergency room visit. If for any reason you are refused follow-up, please contact the [facility] Emergency Department at and asked to speak to the emergency department charge nurse. [facility] Primary Care [address] [place] [id number] [place] [address] Rest and drink plenty of fluids Follow up with primary care provider Return to ED as needed as discussed - My Orders Last 24 Hours: My Active Orders 03/29/19 13:34 Sodium Chloride 0.9% [Normal Saline] 1,000 ml IV STAT Sodium Chloride 0.9% [Saline Flush] 10 ml FLUSH ASDIRECTED PRN Sodium Chloride 0.9% [Saline Flush] 10 ml FLUSH ASDIRECTED PRN Sodium Chloride 0.9% [Saline Flush] 2.5 ml FLUSH ASDIRECTED PRN Sodium Chloride 0.9% [Saline Flush] 2.5 ml FLUSH ASDIRECTED PRN Saline Lock Insert [OM.PC] Stat - Assessment/Plan Last 24 Hours: My Active Orders 03/29/19 13:34 Sodium Chloride 0.9% [Normal Saline] 1,000 ml IV STAT Sodium Chloride 0.9% [Saline Flush] 10 ml FLUSH ASDIRECTED PRN Sodium Chloride 0.9% [Saline Flush] 10 ml FLUSH ASDIRECTED PRN Sodium Chloride 0.9% [Saline Flush] 2.5 ml FLUSH ASDIRECTED PRN Sodium Chloride 0.9% [Saline Flush] 2.5 ml FLUSH ASDIRECTED PRN Saline Lock Insert [OM.PC] Stat
[2019-03-29] MEDS ORDERED: Ketorolac 30 MG/ML SDV IVPUSH ONE (13:34)
[2019-03-29] MEDS ORDERED: diphenhydrAMINE 50 MG/ML SDV IVPUSH ONE (13:34)
[2019-03-29] MEDS ORDERED: Sodium Chloride 0.9% 2.5 ML Syringe FLUSH PRN ×2 (13:34)
[2019-03-29] MEDS ORDERED: Sodium Chloride 0.9% 10 ML Syringe FLUSH PRN ×2 (13:34)
[2019-03-29] MEDS ORDERED: Ondansetron 4 MG/2 ML SDV IVPUSH ONE (13:34)
[2019-03-29] MEDS ORDERED: Metoclopramide 10 MG/2 ML SDV IVPUSH ONE (13:34)
[2019-03-29] MEDS ORDERED: Sodium Chloride 0.9% 1,000 ML IV ONE (13:34)
[2019-03-29 15:09] VITALS: BP 132/81; PULSE 67
== END 2019-03-29 15:09 | disposition home or self-care (01) ==
LOC: MW.ED 13:15
DX: R51 Headache (principal); J45.909 Unspecified asthma, uncomplicated; F20.9 Schizophrenia, unspecified; Z79.899 Other long term (current) drug therapy; Z88.5 Allergy status to narcotic agent
CPT/HCPCS: 96361; 96374; 96375; 99283; J1200; J1885; J2405; J2765; J7040

== ENCOUNTER 2019-06-07 12:57 | Emergency (ER) | payer MEDICAID, OTHER ==
--- NOTE | 2019-06-07 13:06 | EDM.PDOC ---
ED HPI GENERAL MEDICAL PROBLEM - General Stated Complaint: BACK PAIN Time Seen by Provider: 06/07/19 12:58 Source of Information: Reports: Patient History Limitations: Reports: No Limitations - History of Present Illness INITIAL COMMENTS - FREE TEXT/NARRATIVE: HISTORY AND PHYSICAL: History of present illness: Patient is a 24-year-old female who presents to the emergency room today with complaints of lumbar back pain. She states last evening she was helping a friend off the floor and when she bent over she felt a popping sensation along with sharp pain to her lumbar region. She states she was able to finish her evening but when she woke up she had increased pain which was not alleviated with Tylenol. She denies any injury, trauma or falls. Denies any urinary or fecal incontinence. Denies any numbness, tingling or saddle paresthesia. Offers no systemic complaints Review of systems: As per history of present illness and below otherwise all systems reviewed and negative. Past medical history: As per history of present illness and as reviewed below otherwise noncontributory. Surgical history: As per history of present illness and as reviewed below otherwise noncontributory. Social history: See social history for further information Family history: As per history of present illness and as reviewed below otherwise noncontributory. Physical exam: General: Well-developed and well-nourished 24-year-old female. Alert and oriented. Nontoxic appearing and in no acute distress. HEENT: Atraumatic, normocephalic, pupils equal and reactive bilaterally, negative for conjunctival pallor or scleral icterus, mucous membranes moist, TMs normal bilaterally, throat clear, neck supple, nontender, trachea midline. No drooling or trismus noted. No meningeal signs. No hot potato voice noted. Lungs: Clear to auscultation, breath sounds equal bilaterally, chest nontender. Heart: S1S2, regular rate and rhythm without overt murmur Abdomen: Soft, nondistended, nontender. Negative for masses or hepatosplenomegaly. Negative for costovertebral tenderness. Pelvis: Stable nontender. C-spine/Back: No pinpoint vertebral tenderness upon palpation. No crepitus, step -offs or obvious deformities. Diffuse bilateral paraspinous muscular tenderness to the lumbar region. Patient is ambulatory into the emergency room without difficulty or deficit. Able to rock back on heels and walk on toes. Denies any urinary or fecal incontinence. Denies any numbness, tingling or saddle paresthesia. Skin: Intact, warm, dry. No lesions or rashes noted. Extremities: Atraumatic, moves all extremities per self without difficulty or deficits, negative for cords or calf pain. Neurovascular unremarkable. Neuro: Awake, alert, oriented. Cranial nerves II through XII unremarkable. Cerebellum unremarkable. Motor and sensory unremarkable throughout. Exam nonfocal. Notes: Physical examination is benign. She does have some muscular tenderness to the lumbar region. She does have a UTI with her urinalysis. X-ray shows no acute findings. Medication and supportive care measures were reviewed and discussed. Voices understanding and is agreeable to plan of care. Denies any further questions or concerns at this time. Diagnostics: UA, HCGU Therapeutics: Toradol and Norflex Prescription: Flexeril Diclofenac Macrobid Impression: Lumbar back pain UTI Plan: 1. The medication you received today does cause drowsiness, so do not drive for the remaining day 2. When resting please lay on a flat firm surface. Limit your immobility to prevent muscle stiffness. Get up to ambulate/move around/gentle stretching multiple times throughout the day. May alternate heat and ice to the painful areas 3. Tylenol as needed for back pain. Otherwise take the prescribed Flexeril and diclofenac as directed. Diclofenac is an anti-inflammatory so do not take any additional NSAIDs with this medication, such as ibuprofen or Aleve. Flexeril as a muscle relaxant, this medication may cause drowsiness a do not take it will driving her needing to be functioning outside of the house. 4. Please follow-up with your primary care provider as we discussed. Return to the ED as needed and as discussed. Definitive disposition and diagnosis as appropriate pending reevaluation and review of above. Lower Back Pain Score (Numeric/FACES): 10 - Related Data Allergies Allergy/AdvReac Type Severity Reaction Status Date / Time hydrocodone Allergy Hives Verified 06/07/19 13:01 morphine Allergy Hives Verified 06/07/19 13:01 oxycodone Allergy Hives Verified 06/07/19 13:01 Home Meds: Home Meds Acyclovir 400 mg PO BID 09/21/17 [History] Albuterol Sulfate [Ventolin Hfa] 1 - 2 puff INH QID PRN 03/24/18 [History] ClonazePAM [KlonoPIN] 0.5 mg PO BID PRN 09/21/17 [History] Lysine [L-Lysine] 1,000 mg PO DAILY 09/21/17 [History] Cyclobenzaprine [Flexeril] 10 mg PO TID PRN #21 tab 06/07/19 [Rx] Diclofenac Sodium [Voltaren] 75 mg PO BIDMEALS PRN #30 tab.cr 06/07/19 [Rx] Nitrofurantoin Monohyd/M-Cryst [Macrobid 100 mg Capsule] 100 mg PO BID 5 Days # 10 capsule 06/07/19 [Rx] QUEtiapine [SEROquel] 50 mg PO DAILY 06/07/19 [History] Past Medical History - Past Health History Medical/Surgical History: Denies Medical/Surgical History HEENT History: Reports: None Cardiovascular History: Reports: None Respiratory History: Reports: Asthma Gastrointestinal History: Reports: None Genitourinary History: Reports: None Other Genitourinary History: genital herpes FISCAL CLERK History: Reports: None Musculoskeletal History: Reports: None Neurological History: Reports: Migraines Psychiatric History: Reports: Anxiety, Depression, Schizophrenia, Suicide Attempt, Suicidal Ideation Endocrine/Metabolic History: Reports: None Hematologic History: Reports: None Immunologic History: Reports: None Oncologic (Cancer) History: Reports: None Dermatologic History: Reports: None - Infectious Disease History Infectious Disease History: Reports: Herpes Other Infectious Disease History: childhood - Past Surgical History Head Surgeries/Procedures: Reports: None HEENT Surgical History: Reports: None Cardiovascular Surgical History: Reports: None Respiratory Surgical History: Reports: None GI Surgical History: Reports: None Female Surgical History: Reports: None Endocrine Surgical History: Reports: None Neurological Surgical History: Reports: None Musculoskeletal Surgical History: Reports: None Oncologic Surgical History: Reports: None Dermatological Surgical History: Reports: None Social & Family History - Family History Family Medical History: Noncontributory - Caffeine Use Caffeine Use: Reports: None - Living Situation & Occupation Living situation: Reports: Single ED ROS GENERAL - Review of Systems Review Of Systems: Comprehensive ROS is negative, except as noted in HPI. ED EXAM,LOWER BACK PAIN/INJURY - Physical Exam Exam: See Below (See dictation) Course - Vital Signs Last Recorded V/S: Last Vital Signs Temp 97.2 F 06/07/19 13:03 Pulse 108 H 06/07/19 13:03 Resp 22 H 06/07/19 13:03 BP 136/82 06/07/19 13:03 Pulse Ox 96 06/07/19 13:03 - Orders/Labs/Meds Labs: Laboratory Tests 06/07/19 06/07/19 Range/Units 13:15 13:15 Urine Color YELLOW Urine Appearance CLEAR Urine pH 7.5 (5.0-8.0) Ur Specific [place] 1.020 (1.001-1.035) Urine Protein TRACE H (NEGATIVE) mg/dL Urine Glucose (UA) NEGATIVE (NEGATIVE) mg/dL Urine Ketones NEGATIVE (NEGATIVE) mg/dL Urine Occult Blood TRACE-INTACT H (NEGATIVE) Urine Nitrite NEGATIVE (NEGATIVE) Urine Bilirubin NEGATIVE (NEGATIVE) Urine Urobilinogen 0.2 (<2.0) EU/dL Ur Leukocyte Esterase NEGATIVE (NEGATIVE) Urine RBC 2-5 (0-2/HPF) Urine WBC 0-2 (0-5/HPF) Ur Epithelial Cells FEW (NONE-FEW) Urine Bacteria 2+ H (NEGATIVE) Urine Mucus MODERATE (NONE-MOD) Urine HCG, Qual NEGATIVE (NEGATIVE) Meds: Medications Discontinued Medications Generic Name Dose Route Start Last Admin Trade Name Freq PRN Reason Stop Dose Admin Ketorolac Tromethamine 60 mg 06/07/19 13:15 06/07/19 13:35 Toradol IM 06/07/19 13:16 60 mg ONETIME ONE Administration Orphenadrine Citrate 60 mg 06/07/19 13:15 06/07/19 14:03 Norflex IM 06/07/19 13:16 60 mg ONETIME ONE Administration Departure - Departure Time of Disposition: 14:07 Disposition: Home, Self-Care 01 Clinical Impression: Lumbar back pain UTI (urinary tract infection) Qualifiers: Urinary tract infection type: acute cystitis Hematuria presence: without hematuria Qualified Code(s): N30.00 - Acute cystitis without hematuria - Discharge Information Prescriptions: Cyclobenzaprine [Flexeril] 10 mg PO TID PRN #21 tab PRN Reason: Muscle Spasm Diclofenac Sodium [Voltaren] 75 mg PO BIDMEALS PRN #30 tab.cr PRN Reason: Pain Nitrofurantoin Monohyd/M-Cryst [Macrobid 100 mg Capsule] 100 mg PO BID 5 Days # 10 capsule Referrals: Charlee Jeffery MD [Primary Care Provider] - Additional Instructions: The following information is given to patients seen in the emergency department who are being discharged to home. This information is to outline your options for follow-up care. We provide all patients seen in our emergency department with a follow-up referral. The need for follow-up, as well as the timing and circumstances, are variable depending upon the specifics of your emergency department visit. If you don't have a primary care physician on staff, we will provide you with a referral. We always advise you to contact your personal physician following an emergency department visit to inform them of the circumstance of the visit and for follow-up with them and/or the need for any referrals to a consulting specialist. The emergency department will also refer you to a specialist when appropriate. This referral assures that you have the opportunity for follow-up care with a specialist. All of these measure are taken in an effort to provide you with optimal care, which includes your follow-up. Under all circumstances we always encourage you to contact your private physician who remains a resource for coordinating your care. When calling for follow-up care, please make the office aware that this follow-up is from your recent emergency room visit. If for any reason you are refused follow-up, please contact the [facility] Emergency Department at and asked to speak to the emergency department charge nurse. [facility] [address] [place] [id number] [place] [address] 1. Increase your oral fluids and take the antibiotic for your UTI 2. When resting please lay on a flat firm surface. Limit your immobility to prevent muscle stiffness. Get up to ambulate/move around/gentle stretching multiple times throughout the day. May alternate heat and ice to the painful areas 3. Tylenol as needed for back pain. Otherwise take the prescribed Flexeril and diclofenac as directed. Diclofenac is an anti-inflammatory so do not take any additional NSAIDs with this medication, such as ibuprofen or Aleve. Flexeril as a muscle relaxant, this medication may cause drowsiness a do not take it will driving her needing to be functioning outside of the house. 4. Please follow-up with your primary care provider as we discussed. Return to the ED as needed and as discussed.
[2019-06-07 13:14] VITALS: BP 136/82; PULSE 108
[2019-06-07] MEDS ORDERED: Ketorolac 60 MG/2 ML SDV IM ONE (13:15)
--- NOTE | 2019-06-07 14:16 | CR ---
INDICATION: Pt w/back pain s/p lifting friend wrong last night. INDICATION: Pain after injury. TECHNIQUE: Lumbar spine 3 view. COMPARISON: None FINDINGS: Bones: Alignment is normal. No fractures or significant bone lesions. Joints: Disc spaces and facets are unremarkable. Soft tissues: Unremarkable. IMPRESSION: Normal radiographs of the lumbar spine. Dictated by Jesse Hu MD @ 06/07/2019 2:15:52 PM Dictated by: Jesse Hu MD @ 06/07/2019 14:15:57 (Electronically Signed)
== END 2019-06-07 14:23 | disposition home or self-care (01) ==
LOC: MW.ED 12:57
DX: M54.5 Low back pain (principal); N30.00 Acute cystitis without hematuria; Z88.6 Allergy status to analgesic agent; Z88.5 Allergy status to narcotic agent; Z79.899 Other long term (current) drug therapy
CPT/HCPCS: 72100; 81001; 81025; 96372; 99284; J1885; J2360; 99283